=== PATIENT | male | born 1965 | race African-American/Black ===

== ENCOUNTER 2020-04-08 13:20 | Outpatient (REF) | payer MEDICARE, MEDICAID, SELFPAY | END 2020-04-08 13:21 | disposition home or self-care (01) | LOC: HO.HAP 13:20 | PROVIDERS: PCP Internal Medicine; Referring Provider Internal Medicine; Visit Provider Internal Medicine | DX: Z46.1 Encounter for fitting and adjustment of hearing aid (principal) | CPT/HCPCS: V5266 ==

== ENCOUNTER 2020-10-17 08:44 | Outpatient (REF) | payer MEDICARE, MEDICAID, SELFPAY ==
[2020-10-17 10:02] LABS: MANUAL DIFF FLAG NO
[2020-10-17 10:18] LABS: Basophils Percent Auto 0.1 % (0-2); Eosinophils Percent Auto 0.2 % (0-4); Hematocrit 44.1 % (42-52); Hemoglobin 14.8 g/dl (14.0-18.0); Imm Gran Abs Auto 0.03 X10*3/uL (0.00-0.03); Imm Gran Pct Auto 0.3 % (0.0-0.4); Lymphocytes Absolute Auto 1.5 X10*3/uL (1.2-4.9); Lymphocytes Percent Auto 17.7 % (20-40); Mean Corpuscular HGB Conc 33.6 g/dl (31.0-36.0); Mean Corpuscular Volume 86.5 fL (80-98); Mean Platelet Volume 11.6 fL (9.4-12.4); Monocytes Absolute Auto 0.5 X10*3/uL (0.1-1.2); Monocytes Percent Auto 5.4 % (2-11); Neutrophils Absolute Auto 6.6 X10*3/uL (2.0-8.3); Neutrophils Percent Auto 76.3 % (45-73); Platelet Count 243 X10*3/uL (160-400); Red Cell Distribution Width 12.4 % (11.0-16.0); White Blood Count 8.6 X10*3/uL (4.8-10.8)
[2020-10-17 10:31] LABS: Alanine Aminotransferase 22 U/L (0-40); Albumin Level 4.3 g/dL (3.5-5.0); Alkaline Phosphatase 93 U/L (39-117); Anion Gap 14 (12-20); Aspartate Amino Transferase 18 U/L (5-37); Bilirubin Total 0.6 mg/dL (0.0-1.0); Blood Urea Nitrogen 14 mg/dL (9-16); Calcium 9.4 mg/dL (8.4-10.2); Carbon Dioxide 26 mmol/L (22-29); Chloride 107 mmol/L (96-108); Cholesterol 134 mg/dL; Estimated Glomerular Filt Rate > 60; Glucose Random 101 mg/dL (60-115); HDL Cholesterol 31 mg/dL; LDL Cholesterol Calculated 89 mg/dl; Potassium 4.3 mmol/L (3.3-5.1); Sodium 143 mmol/L (135-145); Total Protein 7.9 g/dL (6.5-8.0); Triglycerides 74 mg/dL
[2020-10-17 10:58] LABS: Free T4 (Free Thyroxine) 0.91 ng/dL (0.71-1.85); Thyroid Stimulating Hormone 0.74 uIU/mL (0.32-4.0)
[2020-10-17 11:15] LABS: Folate 14.6 ng/mL (> or = 4.0); Vitamin B12 463 pg/mL (200-900)
== END 2020-10-17 08:45 | disposition home or self-care (01) ==
LOC: HO.LAB 08:44
PROVIDERS: PCP Internal Medicine; Visit Provider Internal Medicine
DX: I10 Essential (primary) hypertension (principal); E78.00 Pure hypercholesterolemia, unspecified
CPT/HCPCS: 36415; 80053; 80061; 82607; 82746; 84439; 84443; 85025

== ENCOUNTER 2020-11-13 11:36 | Outpatient (REF) | payer MEDICARE, MEDICAID, SELFPAY | END 2020-11-13 11:37 | disposition home or self-care (01) | LOC: HO.HAP 11:36 | PROVIDERS: Visit Provider Internal Medicine | DX: H90.3 Sensorineural hearing loss, bilateral (principal); Z46.1 Encounter for fitting and adjustment of hearing aid | CPT/HCPCS: 92592; V5266 ==

== ENCOUNTER 2021-02-06 10:57 | Outpatient (REF) | payer MEDICARE, MEDICAID, SELFPAY | END 2021-02-06 10:58 | disposition home or self-care (01) | LOC: HO.HAP 10:57 | PROVIDERS: Visit Provider Internal Medicine | DX: Z46.1 Encounter for fitting and adjustment of hearing aid (principal); H90.3 Sensorineural hearing loss, bilateral | CPT/HCPCS: 92592 ==

== ENCOUNTER 2021-02-18 13:46 | Outpatient (REF) | payer MEDICARE, MEDICAID, SELFPAY | END 2021-02-18 13:47 | disposition home or self-care (01) | LOC: HO.HAP 13:46 | PROVIDERS: Visit Provider Internal Medicine | DX: Z13.89 Encounter for screening for other disorder (principal) ==

== ENCOUNTER 2021-06-10 10:45 | Outpatient (REF) | payer MEDICARE, MEDICAID, SELFPAY ==
[2021-06-10 11:16] LABS: MANUAL DIFF FLAG NO
[2021-06-10 11:36] LABS: Basophils Percent Auto 0.2 % (0-2); Eosinophils Percent Auto 0.5 % (0-4); Hematocrit 45.8 % (42.0-52.0); Imm Gran Abs Auto 0.01 X10*3/uL (0.00-0.03); Imm Gran Pct Auto 0.1 % (0.0-0.4); Lymphocytes Absolute Auto 1.8 X10*3/uL (1.2-4.9); Lymphocytes Percent Auto 20.7 % (20-40); Mean Corpuscular HGB Conc 32.8 g/dl (31.0-36.0); Mean Corpuscular Hemoglobin 28.6 pg (27.0-33.0); Mean Corpuscular Volume 87.4 fL (80.0-98.0); Mean Platelet Volume 10.9 fL (9.4-12.4); Monocytes Absolute Auto 0.5 X10*3/uL (0.1-1.2); Monocytes Percent Auto 5.9 % (2-11); Neutrophils Absolute Auto 6.2 x10*3/uL (2.0-8.3); Neutrophils Percent Auto 72.6 % (45-73); Platelet Count 289 X10*3/uL (160-400); Red Blood Count 5.24 X10*6/uL (4.60-5.80); White Blood Count 8.6 X10*3/uL (4.8-10.8)
[2021-06-10 11:59] LABS: Alanine Aminotransferase 27 U/L (0-40); Albumin Level 4.2 g/dL (3.5-5.0); Alkaline Phosphatase 103 U/L (39-117); Anion Gap 11 (12-20); Aspartate Amino Transferase 19 U/L (5-37); Bilirubin Total 0.6 mg/dL (0.0-1.0); Blood Urea Nitrogen 12 mg/dL (9-16); Calcium 9.7 mg/dL (8.4-10.2); Carbon Dioxide 28 mmol/L (22-29); Chloride 107 mmol/L (96-108); Cholesterol 134 mg/dL; Estimated Glomerular Filt Rate > 60; Glucose Random 92 mg/dL (60-115); HDL Cholesterol 29 mg/dL; LDL Cholesterol Calculated 87 mg/dl; Potassium 4.4 mmol/L (3.3-5.1); Sodium 142 mmol/L (135-145); Total Protein 8.1 g/dL (6.5-8.0); Triglycerides 92 mg/dL
[2021-06-10 12:00] LABS: Estimated Average Glucose 120 mg/dL; Hemoglobin A1c % 5.8 %
[2021-06-10 12:22] LABS: Free T4 (Free Thyroxine) 0.87 ng/dL (0.71-1.85); Prostate Specific Antigen Scr 2.02 ng/mL (<0.05-4.0); Thyroid Stimulating Hormone 0.68 uIU/mL (0.32-4.0)
[2021-06-10 12:32] LABS: Folate 14.8 ng/mL (> or = 4.0); Vitamin B12 537 pg/mL (200-900)
== END 2021-06-10 10:46 | disposition home or self-care (01) ==
LOC: HO.LAB 10:45
PROVIDERS: PCP Internal Medicine; Visit Provider Internal Medicine
DX: I10 Essential (primary) hypertension (principal); E78.00 Pure hypercholesterolemia, unspecified; R73.02 Impaired glucose tolerance (oral); Z12.5 Encounter for screening for malignant neoplasm of prostate
CPT/HCPCS: 36415; 80053; 80061; 82607; 82746; 83036; 84153; 84439; 84443; 85025

== ENCOUNTER 2021-07-22 12:49 | Outpatient (REF) | payer MEDICARE, MEDICAID, SELFPAY | END 2021-07-22 12:50 | disposition home or self-care (01) | LOC: HO.HAP 12:49 | PROVIDERS: Visit Provider Internal Medicine | DX: Z46.1 Encounter for fitting and adjustment of hearing aid (principal); H90.3 Sensorineural hearing loss, bilateral | CPT/HCPCS: 92592 ==

== ENCOUNTER 2021-07-29 14:41 | Outpatient (REF) | payer MEDICARE, MEDICAID, SELFPAY | END 2021-07-29 14:42 | disposition home or self-care (01) | LOC: HO.HAP 14:41 | PROVIDERS: Visit Provider Internal Medicine | DX: Z13.89 Encounter for screening for other disorder (principal) ==

== ENCOUNTER 2022-04-20 13:43 | Outpatient (REF) | payer MEDICARE, MEDICAID, SELFPAY | END 2022-04-20 13:44 | disposition home or self-care (01) | LOC: HO.HAP 13:43 | PROVIDERS: Visit Provider Internal Medicine | DX: Z13.89 Encounter for screening for other disorder (principal) ==

== ENCOUNTER 2022-04-22 13:44 | Outpatient (REF) | payer MEDICARE, MEDICAID, SELFPAY | END 2022-04-22 13:45 | disposition home or self-care (01) | LOC: HO.HAP 13:44 | PROVIDERS: Visit Provider Internal Medicine | DX: Z46.1 Encounter for fitting and adjustment of hearing aid (principal); H90.3 Sensorineural hearing loss, bilateral | CPT/HCPCS: 92593 ==

== ENCOUNTER 2022-05-18 14:13 | Outpatient (REF) | payer MEDICARE, MEDICAID, SELFPAY | END 2022-05-18 14:14 | disposition home or self-care (01) | LOC: HO.HAP 14:13 | PROVIDERS: Visit Provider Internal Medicine | DX: Z13.89 Encounter for screening for other disorder (principal) ==

== ENCOUNTER 2022-05-28 11:47 | Outpatient (REF) | payer MEDICARE, MEDICAID, SELFPAY | END 2022-05-28 11:48 | disposition home or self-care (01) | LOC: HO.HAP 11:47 | PROVIDERS: Visit Provider Internal Medicine | DX: Z13.89 Encounter for screening for other disorder (principal) ==

== ENCOUNTER 2022-07-06 13:42 | Outpatient (REF) | payer MEDICARE, MEDICAID, SELFPAY | END 2022-07-06 13:43 | disposition home or self-care (01) | LOC: HO.HAP 13:42 | PROVIDERS: Visit Provider Internal Medicine | DX: Z13.89 Encounter for screening for other disorder (principal) ==

== ENCOUNTER 2022-07-15 13:29 | Outpatient (REF) | payer MEDICARE, MEDICAID, SELFPAY | END 2022-07-15 13:30 | disposition home or self-care (01) | LOC: HO.HAP 13:29 | PROVIDERS: Visit Provider Internal Medicine | DX: Z13.89 Encounter for screening for other disorder (principal) ==

== ENCOUNTER 2022-11-07 22:31 | Emergency (ER) | payer MEDICARE, MEDICAID, SELFPAY ==
--- NOTE | ~2022-11-07 | XR_ITS ---
EXAMINATION: XR CHEST CLINICAL INFORMATION: Chest pain. COMPARISON: None available. TECHNIQUE: Frontal view of the chest was obtained. FINDINGS: Low lung volumes with bibasilar platelike opacities. No pleural effusion or pneumothorax. Cardiomediastinal silhouette is prominent, likely accentuated by technique and poor inspiratory effort. No acute osseous abnormalities. The visualized upper abdomen is within normal limits. XR/XR chest 1V IMPRESSION: Low lung volumes with bibasilar platelike opacities favoring to represent subsegmental atelectasis. However, although less favored, aspiration and developing infiltrates cannot be entirely excluded.
--- NOTE | 2022-11-07 22:32 | ECG_ITS ---
Test Reason : CHEST PAIN Blood Pressure : / mmHG Vent. Rate : 095 BPM Atrial Rate : 095 BPM P-R Int : 136 ms QRS Dur : 096 ms QT Int : 356 ms P-R-T Axes : 025 -47 059 degrees QTc Int : 447 ms Normal sinus rhythm Left anterior fascicular block Left ventricular hypertrophy ( R in aVL , Ki product , Romhilt-Cohen ) Abnormal ECG No previous ECGs available Referred By: Generic ED Physician Electronically Signed By:NIGEL LAM
[2022-11-07 22:38] VITALS: BP 167/104; PULSE 94; RESP 16; TEMP 36.7; O2SAT 95; BMI 30.2
[2022-11-07 23:02] LABS: Hematocrit 41.9 % (42.0-52.0); Hemoglobin 13.9 g/dl (14.0-18.0); Mean Corpuscular HGB Conc 33.2 g/dl (31.0-36.0); Mean Corpuscular Hemoglobin 28.4 pg (27.0-33.0); Mean Corpuscular Volume 85.5 fL (80.0-98.0); Mean Platelet Volume 11.2 fL (9.4-12.4); Platelet Count 252 X10*3/uL (160-400); Red Cell Distribution Width 12.5 % (11.0-16.0); White Blood Count 14.8 X10*3/uL (4.8-10.8)
[2022-11-07 23:17] LABS: Alanine Aminotransferase 18 U/L (0-40); Albumin Level 3.7 g/dL (3.5-5.0); Alkaline Phosphatase 105 U/L (39-117); Anion Gap 12 (12-20); Aspartate Amino Transferase 14 U/L (5-37); Bilirubin Total 0.9 mg/dL (0.0-1.0); Blood Urea Nitrogen 11 mg/dL (9-16); Calcium 9.4 mg/dL (8.4-10.2); Carbon Dioxide 25 mmol/L (22-29); Chloride 105 mmol/L (96-108); Creatinine Clr Calc Pharmacy 64.3; Estimated Glomerular Filt Rate 56; Glucose Random 195 mg/dL (60-115); Potassium 3.8 mmol/L (3.3-5.1); Sodium 138 mmol/L (135-145); Total Protein 7.6 g/dL (6.5-8.0)
--- NOTE | 2022-11-08 00:20 | ED_ITS ---
HPI - Chest Pain General Chief Complaint: Chest Pain Stated Complaint: chest pain Time Seen by Provider: 11/08/22 00:20 Source: patient and other (Friend, Herber) Mode of arrival: ambulatory Limitations: no limitations History of Present Illness HPI narrative: 57-year-old male who presents emergency department for evaluation of chest pain. He states that shortly after eating dinner, at 20:00 hours he developed pain in his chest . He states the pain is been constant since onset, he describes the pain is a ?mild pain ?the pain radiate to his neck, jaw or back. He denied lightheadedness, dizziness, diaphoresis, nausea, vomiting associated with the pain. He states this is 1st episode of chest pain. He denied fever, chills, rhinorrhea, sore throat, cough. Related Data Previous Rx's Medication Instructions Recorded lisinopril 20 mg tablet 20 mg PO DAILY #90 tabs 02/17/22 metoprolol succinate 25 mg 25 mg PO DAILY 90 days #90 tabs 11/02/22 tablet,extended release 24 hr Allergies Allergy/AdvReac Type Severity Reaction Status Date / Time amlodipine Allergy Unknown Unknown Verified 11/07/22 22:38 Review of Systems Review of Systems: Yes all other systems are reviewed and are negative [facility] Past Medical History [facility] Narrative: Social history: He lives by himself. He denies tobacco, alcohol and drug use. Medical History Bilateral hearing loss Cyst of left kidney Hypertension Obesity Vitamin D deficiency Surgical History No pertinent past surgical history Family History Family History Father Medical history unknown Mother Medical history unknown Social History Social History Housing: Apartment Alcohol intake: never Patient Tobacco Use Status: Never used Tobacco Tobacco use type: Cigarette e-Cigarette/Vaping Use: Never Used Second Hand Smoke Exposure: No Advance Directives: No Advance Directives Information Provided: No service: No Current occupational status: unemployed Cognitive needs: No Hearing needs: Yes Vision needs: Yes Physical Exam Vital Signs: Vital Signs: Last Vital Signs Temp 98.7 F 11/08/22 01:57 Pulse 92 11/08/22 01:57 Resp 22 H 11/08/22 01:57 BP 124/86 11/08/22 01:57 Pulse Ox 95 11/08/22 01:57 O2 Del Method Room Air 11/08/22 01:57 BMI result Body Mass Index 30.2 Const: General: cooperative and no acute distress Orientation/consciousness: oriented to person and oriented to place Limitations: no limitations HEENT: Head: Yes normal to inspection, Yes normocephalic and Yes atraumatic Ears: external ears normal General nose exam: Normal external nose present Face and sinus: Yes normal facial exam Mouth: Normal oral and palatal mucosa present Throat: Yes posterior oropharynx normal Eyes: General: appearance normal, both eyes and all related structures Pupils: Equal, round and reactive pupils present Neck: Neck: Yes normal visual inspection, Yes no lymphadenopathy, Yes trachea midline and Yes supple Chest: Chest palpation & inspection: normal inspection of the chest and normal palpation of entire chest wall Resp: Effort & Inspection: normal respiratory effort and able to speak in comp lete sentences Auscultation: clear to auscultation bilaterally Cardio: Rate: regular rate Rhythm: regular rhythm Heart sounds: S1 normal heart sound present, S2 normal heart sound present and no murmurs GI: Inspection: Yes normal to inspection Palpation (GI): Soft to palpation, nontender and no guarding Auscultation: normal bowel sounds : General: Yes no CVA tenderness Back/Spine/Pelvis: Back: no CVA tenderness Skin: General skin exam: no rashes or lesions noted Neuro: General: oriented to person and oriented to place Cranial nerves: Yes CN's II-XII intact bilaterally and Yes Equal, round and reactive pupils present Cognition (Neuro): normal cognition Motor exam (neuro): 5/5 motor strength present throughout Extrem: General: Yes normal to inspection Psych: Appearance: grossly normal Speech and movement: Normal speech and movement present Affect: normal affect Attitude: cooperative Medications Administered Discontinued Medications Generic Name Dose Route Start Last Admin Trade Name Freq PRN Reason Stop Dose Admin Ketorolac Tromethamine 15 mg 11/08/22 00:34 11/08/22 00:55 Ketorolac Tromethamine 15 Mg/Ml Vial IVPUSH 11/08/22 00:35 15 mg ONCE STA Administration Medical Decision Making Medical Decision Making [facility] Narrative: 57-year-old male with a history of hypertension, obesity, BPH who presents emergency department for evaluation of chest pain that began around 20:00 hours after eating dinner. He had no concerning associated symptoms such as neck, jaw, arm pain, diaphoresis, lightheadedness, dizziness, nausea or vomiting. The pain is been constant since onset and is mild in intensity. The patient's vital signs revealed an elevated blood pressure of 167/104 otherwise unremarkable pain. Patient's physical examination was normal. I ordered the following tests: CBC, CMP, troponin, chest x-ray, EKG. 0041: Twelve EKG was unremarkable pain Chest x-ray revealed no acute disease My interpretation of the patient's laboratory data is as follows: elevated WBC 78387, elevated glucose 195, and high sensitive troponin I which was detectable of 4.0 but not elevated. Repeat troponin ordered for 02:00 hours. Patient's pain will be treated with Toradol 15 mg IV 0242: Patient is feeling better after receiving IV Toradol . Repeat troponin was 3.7 which is reassuring Patient's pain is most likely musculoskeletal pain Patient was advised to take ibuprofen 400 mg every 6 hours as needed for pain. He was given printed and verbal instructions and discharged home. Differential Diagnosis Differential Diagnoses: The differential diagnosis associated with the presentation includes Differential diagnosis includes was not limited to myocardial infarction, myocardial ischemia, GI pain, musculoskeletal pain, costochondritis Admission/Observation Consideration of admission/observation: Escalation of care including admission/observation considered Lab Data MDM Lab Attestation statement: I reviewed the patient's lab results. 11/07/22 22:57 11/07/22 22:57 Labs: Lab Results 11/07/22 11/07/22 11/07/22 Range/Units 22:57 22:57 22:57 WBC 14.8 H (4.8-10.8) X10*3/uL RBC 4.90 (4.60-5.80) X10*6/uL Hgb 13.9 L (14.0-18.0) g/dl Hct 41.9 L (42.0-52.0) % MCV 85.5 (80.0-98.0) fL MCH 28.4 (27.0-33.0) pg MCHC 33.2 (31.0-36.0) g/dl RDW 12.5 (11.0-16.0) % Plt Count 252 (160-400) X10*3/uL MPV 11.2 (9.4-12.4) fL Absolute Nucleated RBC 0.000 (0.0-0.012) X10*3/uL Nucleated RBC % (auto) 0.0 (0.0-0.2) /100WBC Sodium 138 (135-145) mmol/L Potassium 3.8 (3.3-5.1) mmol/L Chloride 105 (96-108) mmol/L Carbon Dioxide 25 (22-29) mmol/L Anion Gap 12 (12-20) BUN 11 (9-16) mg/dL Creatinine 1.32 (0.5-1.4) mg/dL Estim Creat Clear Calc 64.3 Estimated GFR 56 Random Glucose 195 H (60-115) mg/dL Calcium 9.4 (8.4-10.2) mg/dL Total Bilirubin 0.9 (0.0-1.0) mg/dL AST 14 (5-37) U/L ALT 18 (0-40) U/L Alkaline Phosphatase 105 (39-117) U/L Troponin I High Sens 4.0 (<3.5-35.0) ng/L Total Protein 7.6 (6.5-8.0) g/dL Albumin 3.7 (3.5-5.0) g/dL 11/08/22 Range/Units 02:01 WBC (4.8-10.8) X10*3/uL RBC (4.60-5.80) X10*6/uL Hgb (14.0-18.0) g/dl Hct (42.0-52.0) % MCV (80.0-98.0) fL MCH (27.0-33.0) pg MCHC (31.0-36.0) g/dl RDW (11.0-16.0) % Plt Count (160-400) X10*3/uL MPV (9.4-12.4) fL Absolute Nucleated RBC (0.0-0.012) X10*3/uL Nucleated RBC % (auto) (0.0-0.2) /100WBC Sodium (135-145) mmol/L Potassium (3.3-5.1) mmol/L Chloride (96-108) mmol/L Carbon Dioxide (22-29) mmol/L Anion Gap (12-20) BUN (9-16) mg/dL Creatinine (0.5-1.4) mg/dL Estim Creat Clear Calc Estimated GFR Random Glucose (60-115) mg/dL Calcium (8.4-10.2) mg/dL Total Bilirubin (0.0-1.0) mg/dL AST (5-37) U/L ALT (0-40) U/L Alkaline Phosphatase (39-117) U/L Troponin I High Sens 3.7 (<3.5-35.0) ng/L Total Protein (6.5-8.0) g/dL Albumin (3.5-5.0) g/dL Independent Interpretation I performed an independent interpretation of an: EKG Interpretation: My independent interpretation the patient's 12 EKG done at 07/12/2031 is as follows: Normal sinus rhythm rate of 95, normal AR interval, QRS duration QTC interval, no ST segment elevation, no ST segment depression, no T-wave abnormalities, no PACs, no PVCs, elevated QRS voltages consistent with LVH. No previous EKG comparison My independent interpretation of the patient's 1 view chest x-ray is as follows: no acute disease Radiology Impression Discussion of test interpretation with radiology: I have reviewed the radiologist's reading. Radiologist Impression: XR chest 1V IMPRESSION: Low lung volumes with bibasilar platelike opacities favoring to represent subsegmental atelectasis. However, although less favored, aspiration and developing infiltrates cannot be entirely excluded. Dictated By:Nelda Wallace Independent Historian Clinical information obtained from an independent historian. History obtained from or confirmed by: Friend Discharge Plan Discharge Clinical Impression: Chest pain Qualifiers: Chest pain type: unspecified Qualified Code(s): R07.9 - Chest pain, unspecified Patient Disposition: Home, Self-Care Instructions: Costochondritis (ED) Additional Instructions: Your EKG was unremarkable. Your blood work did reveal a low troponin in your blood however the repeat 3 hour troponin was unchanged not above 30. This suggests that she has not had a heart attack or heart injury is the cause of your pain Your pain is most likely caused by inflammation of the muscles or joints of your chest Take ibuprofen 200 mg pills, 2 pills every 6 hours as needed for pain. Follow-up with your doctor in 2 days. Please return to the emergency department if your symptoms get worse or if you develop any symptoms that are concerning to you. Prescriptions: No Action lisinopril 20 mg tablet 20 mg PO DAILY Qty: 90 2RF metoprolol succinate 25 mg tablet extended release 24 hr 25 mg PO DAILY 90 Days Qty: 90 3RF
[2022-11-08] MEDS: Ketorolac Tromethamine 15 MG/ML VIAL IVPUSH (00:55)
--- NOTE | 2022-11-08 00:57 | PC.NURSE ---
administered 15 mg ketorolac IV push per mAR
[2022-11-08 01:57] VITALS: BP 124/86; PULSE 92; RESP 22; TEMP 37.1; O2SAT 95
[2022-11-08 02:25] LABS: Troponin-I High Sensitivity 3.7 ng/L (<3.5-35.0)
--- NOTE | 2022-11-08 03:16 | PC.NURSE ---
Discharge instructions given and explained to pt No apparent distress Ambulates safely/independently IV cath tip intact upon removal aox4
== END 2022-11-08 03:16 | disposition home or self-care (01) ==
PROVIDERS: Emergency Provider Emergency Medicine Emergency Medical Services; PCP Internal Medicine
DX: R07.9 Chest pain, unspecified (principal); I10 Essential (primary) hypertension
CPT/HCPCS: 36415; 71045; 80053; 84484; 85027; 93005; 96374; 99284; 99285; J1885

== ENCOUNTER 2023-01-17 09:23 | Outpatient (AMB) | payer MEDICARE, MEDICAID, SELFPAY ==
[2023-01-17 09:27] VITALS: BP 158/78; PULSE 79; O2SAT 98; BMI 30.7
--- NOTE | 2023-01-17 09:27 | MHC.PC.OV ---
Vital Signs 01/17/23 09:27 Height 5 ft 6 in Weight 190 lb BMI 30.7 BP 158/78 H Blood Pressure Location Lt brachial Position Sitting Pulse 79 Pulse Source Pulse Oximeter Pulse Oximetry (%) 98 Oxygen Delivery Method Room Air Intake Visit Reasons: 6m F/U HTN Allergies amlodipine Allergy (Unknown, Verified 01/17/23 09:27) Unknown Tobacco use date assessed: 07/15/22 Dental Screening Dental Screen Date: 01/17/23 Did you have a dental visit in the last 12 months?: Yes Did you have a dental problem in the last 6 months where you did not have access to dental care?: No Was dental information given to patient?: Patient has dentist HPI 6m F/U HTN HPI Details 57-year-old obese male with impaired glucose tolerance hypertension BPH coming in for follow-up. Last seen in June 2022 had wrist pain and x-ray was requested blood work requested also. October ER visit for chest pain diagnosis costochondritis. BP high today states teeth aching , chest pain is better. blood work not done as for the chest pain has not occurred again but states after eating did have that pain on the chest and some vague 1. Question of GERD versus costochondritis but it is better. Discussed about eating better also. Patient had a referral for speech and hearing for the hearing deficit but was given a letter and advised to get it in [facility]. COUNTS INCLUDE 234 BEDS AT THE [facility] Medical History Bilateral hearing loss Cyst of left kidney Hypertension Obesity Vitamin D deficiency Surgical History No pertinent past surgical history Family History (Updated 01/17/23 @ 09:28 by Anisha Radford CMA) Father Medical history unknown Mother Medical history unknown Social History Housing: Apartment Alcohol intake: unknown Patient Tobacco Use Status: Never used Tobacco Tobacco use type: Cigarette e-Cigarette/Vaping Use: Never Used Second Hand Smoke Exposure: No service: No Current occupational status: unemployed Cognitive needs: No Hearing needs: Yes Vision needs: Yes Questionnaire PHQ-9 Over the last 2 weeks, how often have you been bothered by any of the following problems? 1. Little interest or pleasure in doing things: not at all 2. Feeling down, depressed, or hopeless: not at all 3. Trouble falling or staying asleep, or sleeping too much: not at all 4. Feeling tired or having little energy: not at all 5. Poor appetite or overeating: not at all 6. Feeling bad about yourself - or that you are a failure or have let yourself or your family down: not at all 7. Trouble concentrating on things, such as reading the newspaper or watching television: not at all 8. Moving or speaking so slowly that other people could have noticed. Or the opposite - being so fidgety or restless that you have been moving around a lot more than usual: not at all 9. Thoughts that you would be better off or of hurting yourself in some way: not at all Total score: 0 Depression Screening Interpretation: Negative Source: Developed by Drs. Larry Coon, Melissa Andujar, Prabhu Gramajo and colleagues, with an educational kathy from [employer]. Thrive Questionnaire Date Thrive assessed: 07/15/22 AUDIT C Alcohol Use Questionnaire (AUDIT-C) 1. How often do you have a drink containing alcohol?: Never 3. How often do you have six or more drinks on one occasion?: Never Total Score: 0 MICHAEL-7 AMB Questionnaire MICHAEL-7 Date MICHAEL - 7 assessed: 07/15/22 Source: Developed by Drs. Larry Coon, Melissa Andujar, Prabhu Gramajo and colleagues, with an educational kathy from [employer]. Physical exam (Primary Care) Vital Signs: Last Vital Signs Pulse 79 01/17/23 09:27 BP 158/78 H 01/17/23 09:27 Pulse Ox 98 01/17/23 09:27 Oxygen Delivery Method Room Air 01/17/23 09:27 BMI result Body Mass Index 30.7 Tobacco/Smoking Status: Tobacco use Status Tobacco use date assessed 07/15/22 01/17/23 09:31 Patient Tobacco Use Status Never used Tobacco 01/17/23 09:31 Tobacco use type Cigarette 01/17/23 09:31 e-Cigarette/Vaping Use Never Used 01/17/23 09:31 PHQ-9: PHQ-9 Score PHQ-9: Total score 0 01/17/23 09:31 Depression Screening Interpretation: Negative Thrive Assessment: Date of Thrive Assessment Date Thrive assessed 07/15/22 01/17/23 09:31 Const General: alert; No acute distress Eyes Conjunctivae: conjunctivae normal Resp Auscultation: clear to auscultation bilaterally Cardio Rate: regular rate Rhythm: regular rhythm GI Inspection: Yes normal to inspection Extrem General: Yes normal to inspection and No edema Assessment and Plan Assessment & Plan (1) Impaired glucose tolerance: Code(s): R73.02 - Impaired glucose tolerance (oral) Plan: Decrease the amount of carbohydrate intake, pasta, bread, rice and potatoes are all sugar and that is aside from all the sweet stuff, remember that fruits are good but they are Sweet also. (2) Obesity: Code(s): E66.9 - Obesity, unspecified Qualifiers: Obesity type: due to excess calories Obesity classification: adult class 1 (BMI 30 - 34.9) Serious obesity comorbidity presence: without serious comorbidity Body mass index: BMI 32.0-32.9 Qualified Code(s): E66.09 - Other obesity due to excess calories; Z68.32 - Body mass index [BMI] 32.0-32.9, adult Plan: Diet and exercise (3) Hypertension: Code(s): I10 - Essential (primary) hypertension Qualifiers: Hypertension type: essential hypertension Qualified Code(s): I10 - Essential (primary) hypertension Plan: Continue with blood pressure medication. Decrease salt intake and exercise patient is on lisinopril 20 mg once a day and metoprolol 25 mg once a day. Presently blood pressure is high states teeth has a problem and advised to get the dentist to see this. As for the blood pressure will continue to monitor. And continue with blood pressure medication (4) Costochondritis: Code(s): M94.0 - Chondrocostal junction syndrome [Tietze] Plan: Reassurance, resolved (5) Bilateral hearing loss: Code(s): H91.93 - Unspecified hearing loss, bilateral Plan: Referral to [facility] Orders: Referrals Speech and Hearing Referral H91.93 - Unspecified hearing loss, bilateral Coding Level of Care Code Est Pt Level 4 (46628) Diagnoses Impaired glucose tolerance R73.02 Obesity E66.09; Z68.32 Obesity type: due to excess calories Obesity classification: adult class 1 (BMI 30 - 34.9) Serious obesity comorbidity presence: without serious comorbidity Body mass index: BMI 32.0-32.9 Hypertension I10 Hypertension type: essential hypertension Costochondritis M94.0 Bilateral hearing loss H91.93
== END 2023-01-17 09:56 | disposition home or self-care (01) ==
PROVIDERS: Visit Provider Internal Medicine
DX: R73.02 Impaired glucose tolerance (oral) (principal); E66.09 Other obesity due to excess calories; Z68.32 Body mass index [BMI] 32.0-32.9, adult; I10 Essential (primary) hypertension; M94.0 Chondrocostal junction syndrome [Tietze]; H91.93 Unspecified hearing loss, bilateral
CPT/HCPCS: 99214

== ENCOUNTER 2023-01-19 08:50 | Outpatient (REF) | payer MEDICARE, MEDICAID, SELFPAY ==
[2023-01-19 09:06] LABS: MANUAL DIFF FLAG NO
[2023-01-19 09:11] LABS: Basophils Percent Auto 0.2 % (0-2); Eosinophils Percent Auto 0.4 % (0-4); Hematocrit 43.4 % (42.0-52.0); Hemoglobin 14.5 g/dl (14.0-18.0); Imm Gran Abs Auto 0.02 X10*3/uL (0.00-0.03); Imm Gran Pct Auto 0.2 % (0.0-0.4); Lymphocytes Percent Auto 24.2 % (20-40); Mean Corpuscular HGB Conc 33.4 g/dl (31.0-36.0); Mean Corpuscular Hemoglobin 28.8 pg (27.0-33.0); Mean Corpuscular Volume 86.3 fL (80.0-98.0); Mean Platelet Volume 11.5 fL (9.4-12.4); Monocytes Absolute Auto 0.5 X10*3/uL (0.1-1.2); Monocytes Percent Auto 5.9 % (2-11); Neutrophils Absolute Auto 5.7 x10*3/uL (2.0-8.3); Neutrophils Percent Auto 69.1 % (45-73); Platelet Count 247 X10*3/uL (160-400); Red Blood Count 5.03 X10*6/uL (4.60-5.80); Red Cell Distribution Width 12.7 % (11.0-16.0); White Blood Count 8.3 X10*3/uL (4.8-10.8)
[2023-01-19 09:49] LABS: Alanine Aminotransferase 19 U/L (0-40); Alkaline Phosphatase 96 U/L (39-117); Anion Gap 10 (12-20); Aspartate Amino Transferase 17 U/L (5-37); Bilirubin Total 0.7 mg/dL (0.0-1.0); Blood Urea Nitrogen 13 mg/dL (9-16); Calcium 8.9 mg/dL (8.4-10.2); Carbon Dioxide 28 mmol/L (22-29); Chloride 109 mmol/L (96-108); Cholesterol 140 mg/dL (<200); Estimated Glomerular Filt Rate > 60; Glucose Random 103 mg/dL (60-115); HDL Cholesterol 31 mg/dL (>40); LDL Cholesterol Calculated 93 mg/dL (<100); Potassium 3.8 mmol/L (3.3-5.1); Sodium 143 mmol/L (135-145); Total Protein 7.8 g/dL (6.5-8.0); Triglycerides 81 mg/dL (<150)
[2023-01-19 10:04] LABS: Free T4 (Free Thyroxine) 0.86 ng/dL (0.71-1.85); Thyroid Stimulating Hormone 0.83 uIU/mL (0.32-4.0)
[2023-01-19 10:18] LABS: Folate 12.1 ng/mL (> or = 4.0); Prostate Specific Antigen Scr 1.52 ng/mL (<0.05-4.0); Vitamin B12 750 pg/mL (200-900)
== END 2023-01-19 08:51 | disposition home or self-care (01) ==
LOC: HO.LAB 08:50
PROVIDERS: PCP Internal Medicine; Visit Provider Internal Medicine
DX: E78.00 Pure hypercholesterolemia, unspecified (principal); I10 Essential (primary) hypertension; Z12.5 Encounter for screening for malignant neoplasm of prostate
CPT/HCPCS: 36415; 80053; 80061; 82607; 82746; 84153; 84439; 84443; 85025

== ENCOUNTER 2023-03-14 15:46 | Outpatient (REF) | payer MEDICARE, MEDICAID, SELFPAY | END 2023-03-14 15:47 | disposition home or self-care (01) | LOC: HO.HAP 15:46 | PROVIDERS: Visit Provider Internal Medicine | DX: Z46.1 Encounter for fitting and adjustment of hearing aid (principal); H90.3 Sensorineural hearing loss, bilateral | CPT/HCPCS: V5266 ==

== ENCOUNTER 2023-03-30 12:20 | Outpatient (AMB) | payer MEDICARE, MEDICAID, SELFPAY ==
--- NOTE | 2023-03-30 12:35 | MHC.PC.OV ---
Vital Signs 03/30/23 12:36 Height 5 ft 6 in Weight 190 lb 6 oz BMI 30.7 BP 130/68 Blood Pressure Location Lt brachial Position Sitting Pulse 78 Pulse Source Pulse Oximeter Pulse Oximetry (%) 97 Oxygen Delivery Method Room Air Intake Visit Reasons: HTN, Intake Note: Patient is here to follow up on HTN. Interactive Developer Required: No Laboratory Apparatus Glass Blower: Not Required per policy Accompanied by: Self / Same As Patient Allergies amlodipine Allergy (Unknown, Verified 03/30/23 12:35) Unknown Medication List - Last Reconciled 03/30/23 by Gustavo Grace MD lisinopril 20 mg PO DAILY metoprolol succinate ER 25 mg PO DAILY 90 days Tobacco use date assessed: 03/30/23 Dental Screening Dental Screen Date: 03/30/23 Did you have a dental visit in the last 12 months?: Yes Did you have a dental problem in the last 6 months where you did not have access to dental care?: No Was dental information given to patient?: Patient has dentist HPI HTN, HPI Details 57-year-old obese male with a history of bilateral hearing loss, impaired glucose tolerance hypertension coming in for follow-up. Last seen in January 09 a 2022 [facility] Medical History Bilateral hearing loss Cyst of left kidney Hypertension Obesity Vitamin D deficiency Surgical History No pertinent past surgical history Family History Father Medical history unknown Mother Medical history unknown Social History Housing: Apartment Alcohol intake: never Patient Tobacco Use Status: Never used Tobacco Tobacco use type: Cigarette e-Cigarette/Vaping Use: Never Used Second Hand Smoke Exposure: No service: No Current occupational status: unemployed Cognitive needs: No Hearing needs: Yes Vision needs: Yes Questionnaire Thrive Questionnaire Date Thrive assessed: 07/15/22 MICHAEL-7 AMB Questionnaire MICHAEL-7 Date MICHAEL - 7 assessed: 07/15/22 Source: Developed by Drs. Larry Coon, Melissa Andujar, Prabhu Gramajo and colleagues, with an educational kathy from [employer]. Physical exam (Primary Care) BMI result Body Mass Index 30.7 Tobacco/Smoking Status: Tobacco use Status Tobacco use date assessed 07/15/22 01/17/23 09:31 Patient Tobacco Use Status Never used Tobacco 01/17/23 09:31 Tobacco use type Cigarette 01/17/23 09:31 e-Cigarette/Vaping Use Never Used 01/17/23 09:31 Thrive Assessment: Date of Thrive Assessment Date Thrive assessed 07/15/22 01/17/23 09:31 Const General: alert; No acute distress Eyes Conjunctivae: conjunctivae normal Resp Auscultation: clear to auscultation bilaterally Cardio Rate: regular rate Rhythm: regular rhythm GI Inspection: Yes normal to inspection Extrem General: Yes normal to inspection and No edema Assessment and Plan Assessment & Plan (1) Hypertension: Code(s): I10 - Essential (primary) hypertension Qualifiers: Hypertension type: essential hypertension Qualified Code(s): I10 - Essential (primary) hypertension Plan: Continue with blood pressure medication. Decrease salt intake and exercise presently on lisinopril 20 mg once a day and metoprolol 25 mg once a day (2) Obesity: Code(s): E66.9 - Obesity, unspecified Qualifiers: Obesity type: due to excess calories Obesity classification: adult class 1 (BMI 30 - 34.9) Serious obesity comorbidity presence: without serious comorbidity Body mass index: BMI 32.0-32.9 Qualified Code(s): E66.09 - Other obesity due to excess calories; Z68.32 - Body mass index [BMI] 32.0-32.9, adult Plan: Diet and exercise (3) Impaired glucose tolerance: Code(s): R73.02 - Impaired glucose tolerance (oral) Plan: Decrease the amount of carbohydrate intake, pasta, bread, rice and potatoes are all sugar and that is aside from all the sweet stuff, remember that fruits are good but they are Sweet also. (4) Bilateral hearing loss: Code(s): H91.93 - Unspecified hearing loss, bilateral Orders: Referrals Ear/Nose/Throat Referral H91.93 - Unspecified hearing loss, bilateral Coding Level of Care Code Est Pt Level 4 (22712) Diagnoses Essential hypertension I10 Hypertension type: essential hypertension Class 1 obesity due to excess calories without serious comorbidity with body mass index (BMI) of 32.0 to 32.9 in adult E66.09; Z68.32 Obesity type: due to excess calories Obesity classification: adult class 1 (BMI 30 - 34.9) Serious obesity comorbidity presence: without serious comorbidity Body mass index: BMI 32.0-32.9 Impaired glucose tolerance R73.02 Bilateral hearing loss H91.93
[2023-03-30 12:36] VITALS: BP 130/68; PULSE 78; O2SAT 97; BMI 30.7
== END 2023-03-30 12:56 | disposition home or self-care (01) ==
PROVIDERS: PCP Internal Medicine; Visit Provider Internal Medicine
DX: I10 Essential (primary) hypertension (principal); E66.09 Other obesity due to excess calories; Z68.32 Body mass index [BMI] 32.0-32.9, adult; R73.02 Impaired glucose tolerance (oral); H91.93 Unspecified hearing loss, bilateral
CPT/HCPCS: 99214

== ENCOUNTER 2023-07-04 19:37 | Emergency (ER) | payer MEDICARE, MEDICAID, SELFPAY ==
--- NOTE | ~2023-07-04 | XR_ITS ---
Examination: XR ankle LT min 3V, XR foot LT min 3V Indication: pain, injury Comparison: No pertinent prior studies are currently available for comparison. Technique: 3 views of the left ankle and foot were obtained with a combined lateral left ankle and foot projection. Findings: There is significant soft tissue swelling about the medial ankle. I cannot exclude a very tiny avulsion injury along the inferior aspect of the medial malleolus on one projection. I do not appreciate any obvious widening to the ankle mortise. Calcaneal heel spurs at the attachment point of the Achilles tendon and plantar aponeurosis noted. There are subtle nondisplaced fractures through the proximal metaphysis of the second and third metatarsals. I do not appreciate any significant angulation to the subtle fractures. XR/XR ankle LT min 3V Impression: Significant soft tissue swelling about the medial ankle. I cannot exclude a tiny avulsion injury along the inferior aspect of the medial malleolus on one projection. There are subtle nondisplaced fractures through the proximal metaphysis of the second and third metatarsals.
--- NOTE | ~2023-07-04 | XR_ITS ---
Examination: XR ankle LT min 3V, XR foot LT min 3V Indication: pain, injury Comparison: No pertinent prior studies are currently available for comparison. Technique: 3 views of the left ankle and foot were obtained with a combined lateral left ankle and foot projection. Findings: There is significant soft tissue swelling about the medial ankle. I cannot exclude a very tiny avulsion injury along the inferior aspect of the medial malleolus on one projection. I do not appreciate any obvious widening to the ankle mortise. Calcaneal heel spurs at the attachment point of the Achilles tendon and plantar aponeurosis noted. There are subtle nondisplaced fractures through the proximal metaphysis of the second and third metatarsals. I do not appreciate any significant angulation to the subtle fractures. XR/XR foot LT min 3V Impression: Significant soft tissue swelling about the medial ankle. I cannot exclude a tiny avulsion injury along the inferior aspect of the medial malleolus on one projection. There are subtle nondisplaced fractures through the proximal metaphysis of the second and third metatarsals.
[2023-07-04 19:39] VITALS: BP 180/119; PULSE 99; RESP 18; TEMP 37.4; O2SAT 97; BMI 32.9
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
[2023-07-05 00:27] VITALS: BP 204/108; PULSE 96; RESP 17; TEMP 36.9; O2SAT 98
[2023-07-05 01:11] VITALS: BP 184/108; PULSE 94; O2SAT 99
[2023-07-05] MEDS: lisinopriL 20 MG TABLET PO (01:26)
--- NOTE | 2023-07-05 02:01 | PC.NURSE ---
splint applied to patient left leg by URI bolaños, patient tolerated procedure well. currently resting in bed, respirations equal and unlabored
[2023-07-05 02:11] VITALS: BP 173/103
[2023-07-05 02:20] VITALS: BP 182/94
== END 2023-07-05 02:41 | disposition home or self-care (01) ==
PROVIDERS: Emergency Provider Emergency Medicine; PCP Internal Medicine
DX: S92.325A Nondisplaced fracture of second metatarsal bone, left foot, initial encounter for closed fracture (principal); M79.672 Pain in left foot; I10 Essential (primary) hypertension; V03.90XA Pedestrian on foot injured in collision with car, pick-up truck or van, unspecified whether traffic or nontraffic accident, initial encounter; Y93.9 Activity, unspecified; Y92.410 Unspecified street and highway as the place of occurrence of the external cause; Y99.8 Other external cause status
CPT/HCPCS: 73610; 73630; 99283

== ENCOUNTER 2023-07-06 09:20 | Outpatient (AMB) | payer MEDICARE, MEDICAID, SELFPAY ==
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
[2023-07-06 09:29] VITALS: BMI 32.9
== END 2023-07-06 10:37 | disposition home or self-care (01) ==
PROVIDERS: PCP Internal Medicine; Visit Provider Physician Assistant
DX: S92.325A Nondisplaced fracture of second metatarsal bone, left foot, initial encounter for closed fracture (principal); S92.335A Nondisplaced fracture of third metatarsal bone, left foot, initial encounter for closed fracture; S97.82XA Crushing injury of left foot, initial encounter
CPT/HCPCS: 99203

== ENCOUNTER → 2023-07-06 09:20 | Outpatient (BNVA) | payer MEDICARE, MEDICAID, SELFPAY | PROVIDERS: PCP Internal Medicine; Visit Provider Physician Assistant | DX: S92.325A Nondisplaced fracture of second metatarsal bone, left foot, initial encounter for closed fracture (principal); S92.335A Nondisplaced fracture of third metatarsal bone, left foot, initial encounter for closed fracture; S97.82XA Crushing injury of left foot, initial encounter | CPT/HCPCS: 99202 ==

== ENCOUNTER 2023-07-21 08:37 | Outpatient (AMB) | payer MEDICARE, MEDICAID, SELFPAY ==
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
[2023-07-21 08:44] VITALS: BP 172/98; PULSE 93; O2SAT 98; BMI 30.9
== END 2023-07-21 09:50 | disposition home or self-care (01) ==
PROVIDERS: Visit Provider Internal Medicine
DX: Z00.00 Encounter for general adult medical examination without abnormal findings (principal); E66.09 Other obesity due to excess calories; Z68.32 Body mass index [BMI] 32.0-32.9, adult; I10 Essential (primary) hypertension; R73.02 Impaired glucose tolerance (oral); H91.93 Unspecified hearing loss, bilateral; N40.0 Benign prostatic hyperplasia without lower urinary tract symptoms; S92.335A Nondisplaced fracture of third metatarsal bone, left foot, initial encounter for closed fracture; S92.325A Nondisplaced fracture of second metatarsal bone, left foot, initial encounter for closed fracture; M25.531 Pain in right wrist
CPT/HCPCS: 99396

== ENCOUNTER 2023-08-11 09:30 | Outpatient (REF) | payer MEDICARE, MEDICAID, SELFPAY ==
--- NOTE | ~2023-08-11 | XR_ITS ---
EXAMINATION: XR FOOT, LEFT CLINICAL INFORMATION: Pain in left foot COMPARISON: July 04 or 2023 TECHNIQUE: AP, lateral, and oblique views of the left foot. FINDINGS: The bones and soft tissues are normal. No fracture. Alignment is anatomic. There is plantar and small posterior calcaneal spurring. There is soft tissue swelling dorsally Joint spaces are maintained. XR/XR foot LT min 3V IMPRESSION: No fracture seen. Calcaneal spurring.
== END 2023-08-11 09:31 | disposition home or self-care (01) ==
LOC: HO.HOSX 09:30
PROVIDERS: Visit Provider Physician Assistant
DX: S92.325D Nondisplaced fracture of second metatarsal bone, left foot, subsequent encounter for fracture with routine healing (principal); S92.335D Nondisplaced fracture of third metatarsal bone, left foot, subsequent encounter for fracture with routine healing; M79.672 Pain in left foot; S97.82XD Crushing injury of left foot, subsequent encounter; V09.20XD Pedestrian injured in traffic accident involving unspecified motor vehicles, subsequent encounter
CPT/HCPCS: 73630; 99212

== ENCOUNTER 2023-08-11 12:52 | Outpatient (AMB) | payer MEDICARE, MEDICAID, SELFPAY ==
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
== END 2023-08-11 14:57 | disposition home or self-care (01) ==
PROVIDERS: PCP Internal Medicine; Visit Provider Physician Assistant
DX: S92.325A Nondisplaced fracture of second metatarsal bone, left foot, initial encounter for closed fracture (principal); S92.335A Nondisplaced fracture of third metatarsal bone, left foot, initial encounter for closed fracture; S97.82XA Crushing injury of left foot, initial encounter
CPT/HCPCS: 99213

== ENCOUNTER 2023-09-08 10:38 | Outpatient (REF) | payer MEDICARE, MEDICAID, SELFPAY ==
--- NOTE | ~2023-09-08 | XR_ITS ---
EXAMINATION: XR FOOT, LEFT CLINICAL INFORMATION: Pain in unspecified foot. COMPARISON: 08/11/2023, 07/04/2023. TECHNIQUE: AP, lateral, and oblique views of the left foot. FINDINGS: Previously identified nondisplaced fractures through the proximal metaphysis of the second and third metatarsals identified on exam of 07/04/2023 are less conspicuous, with evidence of interval healing. Bones are diffusely demineralized. Mild degenerative changes first metatarsophalangeal joint. Plantar and posterior calcaneal spurs. XR/XR foot LT min 3V IMPRESSION: Previously identified nondisplaced fractures through the proximal metaphysis of the second and third metatarsals identified on exam of 07/04/2023 are less conspicuous, with evidence of interval healing..
== END 2023-09-08 10:39 | disposition home or self-care (01) ==
LOC: HO.HOSX 10:38
PROVIDERS: Visit Provider Physician Assistant
DX: S92.322D Displaced fracture of second metatarsal bone, left foot, subsequent encounter for fracture with routine healing (principal)
CPT/HCPCS: 73630; 99212

== ENCOUNTER 2023-09-08 12:42 | Outpatient (AMB) | payer MEDICARE, MEDICAID, SELFPAY ==
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
== END 2023-09-08 14:34 | disposition home or self-care (01) ==
PROVIDERS: PCP Internal Medicine; Visit Provider Physician Assistant
DX: S92.325A Nondisplaced fracture of second metatarsal bone, left foot, initial encounter for closed fracture (principal); S92.335A Nondisplaced fracture of third metatarsal bone, left foot, initial encounter for closed fracture; S97.82XA Crushing injury of left foot, initial encounter
CPT/HCPCS: 99213

== ENCOUNTER 2023-09-14 11:00 | Outpatient (RCR) | payer MEDICARE, MEDICAID, SELFPAY ==
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
== END 2023-09-14 14:58 | disposition home or self-care (01) ==
LOC: HO.PT 11:00
PROVIDERS: PCP Internal Medicine; Visit Provider Physician Assistant
DX: S97.82XD Crushing injury of left foot, subsequent encounter (principal)
CPT/HCPCS: 97140; 97161; 97530

== ENCOUNTER 2023-10-25 08:18 | Outpatient (REF) | payer MEDICARE, MEDICAID, SELFPAY ==
[2023-10-25 08:28] LABS: MANUAL DIFF FLAG NO
[2023-10-25 08:57] LABS: Basophils Percent Auto 0.1 % (0-2); Eosinophils Absolute Auto 0.1 X10*3/uL (0.0-0.4); Hematocrit 39.8 % (42.0-52.0); Hemoglobin 13.3 g/dl (14.0-18.0); Imm Gran Abs Auto 0.01 X10*3/uL (0.00-0.03); Imm Gran Pct Auto 0.1 % (0.0-0.4); Lymphocytes Absolute Auto 1.8 X10*3/uL (1.2-4.9); Lymphocytes Percent Auto 25.3 % (20-40); Mean Corpuscular HGB Conc 33.4 g/dl (31.0-36.0); Mean Corpuscular Hemoglobin 28.5 pg (27.0-33.0); Mean Corpuscular Volume 85.2 fL (80.0-98.0); Mean Platelet Volume 11.7 fL (9.4-12.4); Monocytes Absolute Auto 0.5 X10*3/uL (0.1-1.2); Monocytes Percent Auto 7.2 % (2-11); Neutrophils Absolute Auto 4.7 x10*3/uL (2.0-8.3); Neutrophils Percent Auto 66.3 % (45-73); Platelet Count 223 X10*3/uL (160-400); Red Blood Count 4.67 X10*6/uL (4.60-5.80); Red Cell Distribution Width 12.8 % (11.0-16.0)
[2023-10-25 09:41] LABS: Alanine Aminotransferase 16 U/L (0-40); Albumin Level 3.8 g/dL (3.5-5.0); Alkaline Phosphatase 94 U/L (39-117); Anion Gap 13 (12-20); Aspartate Amino Transferase 16 U/L (5-37); Bilirubin Total 0.4 mg/dL (0.0-1.0); Blood Urea Nitrogen 14 mg/dL (9-16); Carbon Dioxide 24 mmol/L (22-29); Chloride 110 mmol/L (96-108); Cholesterol 130 mg/dL (<200); Estimated Glomerular Filt Rate > 60; Glucose Random 106 mg/dL (60-115); HDL Cholesterol 35 mg/dL (>40); LDL Cholesterol Calculated 81 mg/dL (<100); Potassium 3.6 mmol/L (3.3-5.1); Sodium 143 mmol/L (135-145); Total Protein 7.3 g/dL (6.5-8.0); Triglycerides 74 mg/dL (<150)
[2023-10-25 10:00] LABS: Free T4 (Free Thyroxine) 0.89 ng/dL (0.71-1.85); Thyroid Stimulating Hormone 0.76 uIU/mL (0.32-4.0)
[2023-10-25 12:02] LABS: Folate 11.5 ng/mL (> or = 4.0); Prostate Specific Antigen Scr 1.97 ng/mL (<0.05-4.0); Vitamin B12 389 pg/mL (200-900)
== END 2023-10-25 08:19 | disposition home or self-care (01) ==
LOC: HO.LAB 08:18
PROVIDERS: PCP Internal Medicine; Visit Provider Internal Medicine
DX: E78.00 Pure hypercholesterolemia, unspecified (principal); H91.93 Unspecified hearing loss, bilateral; Z12.5 Encounter for screening for malignant neoplasm of prostate
CPT/HCPCS: 36415; 80053; 80061; 82607; 82746; 84153; 84439; 84443; 85025

== ENCOUNTER 2024-01-19 11:39 | Outpatient (AMB) | payer MEDICARE, MEDICAID, SELFPAY ==
[2024-01-19 11:49] VITALS: BP 180/102; PULSE 88; O2SAT 97; BMI 30.5
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
== END 2024-01-19 13:00 | disposition home or self-care (01) ==
PROVIDERS: PCP Internal Medicine; Visit Provider Internal Medicine
DX: S97.82XA Crushing injury of left foot, initial encounter (principal); N40.0 Benign prostatic hyperplasia without lower urinary tract symptoms; E66.09 Other obesity due to excess calories; Z68.32 Body mass index [BMI] 32.0-32.9, adult; R73.02 Impaired glucose tolerance (oral); I10 Essential (primary) hypertension; Z12.11 Encounter for screening for malignant neoplasm of colon
CPT/HCPCS: 99214

== ENCOUNTER 2024-04-18 09:43 | Outpatient (AMB) | payer MEDICARE, MEDICAID, SELFPAY ==
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
[2024-04-18 09:54] VITALS: BP 164/82; PULSE 84; O2SAT 97; BMI 29.4
== END 2024-04-18 10:22 | disposition home or self-care (01) ==
PROVIDERS: PCP Internal Medicine; Visit Provider Internal Medicine
DX: I10 Essential (primary) hypertension (principal); R73.02 Impaired glucose tolerance (oral); N40.0 Benign prostatic hyperplasia without lower urinary tract symptoms; E66.3 Overweight

== ENCOUNTER → 2024-04-18 09:43 | Outpatient (BNVA) | payer MEDICARE, MEDICAID, SELFPAY | PROVIDERS: PCP Internal Medicine; Visit Provider Internal Medicine | DX: I10 Essential (primary) hypertension (principal); R73.02 Impaired glucose tolerance (oral); E66.3 Overweight; Z68.29 Body mass index [BMI] 29.0-29.9, adult; Z71.3 Dietary counseling and surveillance | CPT/HCPCS: 96127; 99212 ==

== ENCOUNTER 2024-07-16 07:44 | Outpatient (REF) | payer MEDICARE, MEDICAID, SELFPAY ==
[2024-07-16 08:02] LABS: MANUAL DIFF FLAG NO
[2024-07-16 08:52] LABS: Basophils Percent Auto 0.4 % (0-2); Eosinophils Percent Auto 0.5 % (0-4); Hematocrit 41.7 % (42.0-52.0); Hemoglobin 13.7 g/dl (14.0-18.0); Imm Gran Abs Auto 0.01 X10*3/uL (0.00-0.03); Imm Gran Pct Auto 0.2 % (0.0-0.4); Immature Retic Fraction 10.5 % (2.3-13.4); Lymphocytes Absolute Auto 1.6 X10*3/uL (1.2-4.9); Lymphocytes Percent Auto 28.6 % (20-40); Mean Corpuscular HGB Conc 32.9 g/dl (31.0-36.0); Mean Corpuscular Hemoglobin 28.4 pg (27.0-33.0); Mean Corpuscular Volume 86.3 fL (80.0-98.0); Mean Platelet Volume 11.7 fL (9.4-12.4); Monocytes Absolute Auto 0.4 X10*3/uL (0.1-1.2); Neutrophils Absolute Auto 3.5 x10*3/uL (2.0-8.3); Neutrophils Percent Auto 63.3 % (45-73); Platelet Count 230 X10*3/uL (160-400); Red Blood Count 4.83 X10*6/uL (4.60-5.80); Red Cell Distribution Width 12.6 % (11.0-16.0); Reticulocyte Percent 1.5 % (0.5-1.8); Reticulocytes Absolute 0.073 X10*6/uL (0.026-0.095); White Blood Count 5.5 X10*3/uL (4.8-10.8)
[2024-07-16 08:56] LABS: Estimated Average Glucose 117 mg/dL; Hemoglobin A1c % 5.7 % (<6.0); Total Hemoglobin (HGBA1C) 3631.8099 umol/L
[2024-07-16 09:46] LABS: Alanine Aminotransferase 26 U/L (0-40); Alkaline Phosphatase 86 U/L (39-117); Anion Gap 11 (12-20); Aspartate Amino Transferase 26 U/L (5-37); Bilirubin Total 0.7 mg/dL (0.0-1.0); Blood Urea Nitrogen 12 mg/dL (9-16); Calcium 9.1 mg/dL (8.4-10.2); Carbon Dioxide 26 mmol/L (22-29); Chloride 111 mmol/L (96-108); Estimated Glomerular Filt Rate > 60; Glucose Random 93 mg/dL (60-115); Iron 143 mcg/dL (45-160); Percent Iron Saturation 43 % (15-50); Potassium 3.6 mmol/L (3.3-5.1); Sodium 144 mmol/L (135-145); Total Iron Binding Capacity 334 mcg/dL (228-428); Total Protein 7.9 g/dL (6.5-8.0); Unsaturated Iron Binding 191 ug/dL
[2024-07-16 10:05] LABS: Ferritin 30 ng/mL (20-250)
[2024-07-16 10:07] LABS: Folate 12.5 ng/mL (> or = 4.0); Vitamin B12 521 pg/mL (200-900)
== END 2024-07-16 07:45 | disposition home or self-care (01) ==
LOC: HO.LAB 07:44
PROVIDERS: PCP Internal Medicine; Visit Provider Internal Medicine
DX: R73.02 Impaired glucose tolerance (oral) (principal); E53.8 Deficiency of other specified B group vitamins
CPT/HCPCS: 36415; 80053; 82607; 82728; 82746; 83036; 83540; 85025; 85045

== ENCOUNTER 2024-07-26 10:06 | Outpatient (AMB) | payer MEDICARE, MEDICAID, SELFPAY ==
[2024-07-26 10:26] VITALS: BP 176/96; PULSE 84; RESP 20; TEMP 36.3; O2SAT 97; BMI 29.8
--- NOTE | 2024-07-26 10:26 | AM.OFFVISMDC ---
Intake Vital Signs 07/26/24 10:26 Height 5 ft 7 in Weight 190 lb 6 oz BMI 29.8 BP 176/96 H Blood Pressure Location Lt brachial Position Sitting Respiration 20 Pulse 84 Pulse Source Pulse Oximeter Temp 97.3 F Temp Source Temporal Artery Scan Pulse Oximetry (%) 97 Oxygen Delivery Method Room Air Intake Visit Reasons: AWV Vice President Quality Assurance Required: No Accompanied by: Self / Same As Patient Allergies amlodipine Allergy (Unknown, Verified 07/26/24 10:27) Unknown Medication List - Last Reconciled 07/26/24 by Gustavo Grace MD [detachable shower head As directed NS] lisinopril-hydrochlorothiazide 20-12.5 mg 1 tab PO BID metoprolol succinate ER 25 mg PO DAILY 90 days Shower Chair As directed [facility] Medical History Cyst of left kidney Obesity Hypertension Vitamin D deficiency Bilateral hearing loss Surgical History No pertinent past surgical history Family History Father Medical history unknown Mother Medical history unknown Social History Housing: Apartment Alcohol intake: never Patient Tobacco Use Status: Never used Tobacco Tobacco use type: Cigarette e-Cigarette/Vaping Use: Never Used Second Hand Smoke Exposure: No service: No Current occupational status: unemployed Cognitive needs: No Hearing needs: Yes Vision needs: Yes Questionnaire Medicare Wellness Checkup What is your age?: 65-69 (18-64) What gender do you identify with?: male During the past 4 weeks, how much have you been bothered by emotional problems such as feeling anxious, depressed, irritable, sad or downhearted, and blue?: not at all During the past 4 weeks, has your physical & emotional health limited your social activities with family, friends, neighbors, or groups?: not at all During the past 4 weeks, how much bodily pain have you generally had?: mild pain During the past 4 weeks, was someone available to help you if you needed & wanted help?: yes, some During the past 4 weeks, what was the hardest physical activity you could do for at least 2 minutes?: light Can you get to places out of walking distance without help? (For eg., can you travel alone on buses, taxis or drive your car?): Yes Can you go shopping for groceries or clothes without someone's help?: Yes Can you prepare your own meals?: Yes Can you do your housework without help?: Yes Because of any health problems, do you need the help of another person with your personal care needs such as eating, bathing, dressing or getting around the house?: No Can you handle your own money without help?: Yes During the past 4 weeks, how would you rate your health in general?: good During the past 4 weeks how have things been going for you?: pretty well Are you having difficulties driving your car?: not applicable, I don't use a car Do you always fasten your seat belt when you are in a car?: yes, sometimes During past 4 weeks, have you been bothered by the following: never: Falling or dizzy when standing up, Sexual problems?, Trouble eating well?, Teeth or denture problems?, Problems using the telephone? and Tiredness or fatigue? Have you fallen 2 or more times in the past year?: No Are you afraid of falling?: No Are you a smoker?: no During the past 4 weeks, how many drinks of wine, beer, or other alcoholic beverages did you have?: no alcohol at all Do you exercise for about 20 minutes 3 or more times a week?: no, I usually do not exercise this much Have you been given information to help with the following?: yes: Keeping track of your medications? and no: Hazards in your house that might hurt you? How often do you have trouble taking medicines the way you have been told to take them?: I always take medicine as prescribed How confident are you that you can control & manage most of your health problems?: somewhat confident What is your race?: Black or PHQ-9 Over the last 2 weeks, how often have you been bothered by any of the following problems? 1. Little interest or pleasure in doing things: not at all 2. Feeling down, depressed, or hopeless: not at all 3. Trouble falling or staying asleep, or sleeping too much: not at all 4. Feeling tired or having little energy: not at all 5. Poor appetite or overeating: not at all 6. Feeling bad about yourself - or that you are a failure or have let yourself or your family down: not at all 7. Trouble concentrating on things, such as reading the newspaper or watching television: not at all 8. Moving or speaking so slowly that other people could have noticed. Or the opposite - being so fidgety or restless that you have been moving around a lot more than usual: not at all 9. Thoughts that you would be better off or of hurting yourself in some way: not at all Total score: 0 Depression Screening Interpretation: Negative Depression Screening Done: Yes 96765 - PHQ-9 Billing: Yes Source: Developed by Drs. Larry Coon, Melissa Andujar, Prabhu Gramajo and colleagues, with an educational kathy from [employer]. Review of Systems Const Denies poor appetite and Denies weakness Eyes Denies no additional complaints ENT Reports Normal hearing present, Denies dizziness, Denies nasal congestion, Denies tinnitus and Denies sore throat Card Denies chest pain, Denies syncope, Denies rapid heart rate and Denies dyspnea Resp Denies cough and Denies dyspnea GI Denies change in stool character, Reports constipation, Denies diarrhea, Denies nausea and Denies vomiting Denies dysuria and Denies urinary frequency Neuro Reports Normal hearing present, Denies confusion, Denies dizziness, Denies syncope and Denies weakness Psych Denies confusion Physical Exam Vital Signs: Last Vital Signs Temp 97.3 F 07/26/24 10:26 Pulse 84 07/26/24 10:26 Resp 20 07/26/24 10:26 BP 176/96 H 07/26/24 10:26 Pulse Ox 97 07/26/24 10:26 Oxygen Delivery Method Room Air 07/26/24 10:26 BMI result Body Mass Index 29.8 Const General: No confusion Orientation/consciousness: No confusion HEENT Head: Yes normocephalic Ears: external ears normal and TM's normal bilaterally Face and sinus: Yes normal facial exam Mouth: moist mucous membranes Throat: Yes tonsils normal Eyes Conjunctivae: conjunctivae normal Pupils: Equal, round and reactive pupils present and Pupil accommodation reflex normal Direct Ophthalmoscopy: normal light reflex Neck Neck: No lymphadenopathy Thyroid: Thyroid normal Chest Chest palpation & inspection: normal inspection of the chest Resp Effort & Inspection: normal respiratory effort and no audible wheezes Auscultation: clear to auscultation bilaterally, no crackles, no wheezes and lung sounds not diminished Cardio Rate: regular rate Rhythm: regular rhythm Peripheral pulses: radial pulses present and dorsalis pedis present GI Palpation (GI): no masses Auscultation: normal bowel sounds and normoactive bowel sounds Rectal Exam - Male: Yes deferred Skin General skin exam: no rashes or lesions noted Rashes: no rashes Neuro General: No confusion Cranial nerves: Yes Equal, round and reactive pupils present and Yes Normal hearing present Cognition (Neuro): normal cognition Gait exam (Neuro): Normal gait present Motor exam (neuro): 5/5 motor strength present throughout Deep tendon reflexes (DTR's): Right brachioradialis reflex intensity grade: 2+, Left brachioradialis reflex intensity grade: 2+, Right patellar reflex intensity grade: 2+ and Left patellar reflex intensity grade: 2+ Extrem General: No edema Assessment & Plan Assessment & Plan (1) Annual wellness visit: Code(s): Z00.00 - Encounter for general adult medical examination without abnormal findings Plan: As planned (2) Overweight (BMI 25.0-29.9): Code(s): E66.3 - Overweight Plan: Diet and exercise (3) Hypertension: Code(s): I10 - Essential (primary) hypertension Qualifiers: Hypertension type: essential hypertension Qualified Code(s): I10 - Essential (primary) hypertension Plan: Continue with blood pressure medication. Decrease salt intake and exercise patient on lisinopril 20 mg twice a day with metoprolol 25 mg once a day (4) Impaired glucose tolerance: Code(s): R73.02 - Impaired glucose tolerance (oral) Plan: Decrease the amount of carbohydrate intake, pasta, bread, rice and potatoes are all sugar and that is aside from all the sweet stuff, remember that fruits are good but they are Sweet also. (5) BPH (benign prostatic hyperplasia): Code(s): N40.0 - Benign prostatic hyperplasia without lower urinary tract symptoms Qualifiers: Lower urinary tract symptom presence: symptoms absent Qualified Code(s): N40.0 - Benign prostatic hyperplasia without lower urinary tract symptoms Plan: Continue to monitor (6) Colon cancer screening: Code(s): Z12.11 - Encounter for screening for malignant neoplasm of colon Plan History of Present Illness The patient is a 58-year-old male presenting for an annual wellness visit. He has a diagnosis of essential hypertension, currently being managed with lisinopril and metoprolol, but continues to experience difficulties in controlling his blood pressure. Discussions around consulting a stacker straightener were noted to assist in managing this. He also has impaired glucose tolerance with stable glucose levels reported recently. His mild anemia has shown improvement, with hemoglobin levels gradually increasing in recent assessments. Though the prostate is described as slightly enlarged, he is asymptomatic regarding urinary issues and tested without significant abnormalities in prostate screening. The patient's osteoarthritis leads to joint discomfort that might be partially attributed to sedentary postures, and regular stretches were recommended to mitigate pain. Additional screenings and past lab results provided a comprehensive overview of the patient's condition, including stable renal function and normal liver panel results. He maintains a careful diet and exercise routine with moderate caffeine intake despite facing joint discomfort given osteoarthritis symptoms. Health Maintenance - Dietary and exercise measures continue to manage glucose levels. - Regular cholesterol screenings, last tested in October 2023. - Annual prostate examinations, digital rectal exams conducted at this visit. - Eye exams every two years and regular hearing aid checks. - Discussion on the necessity of flu vaccinations given current high risks for flu, COVID, and RSV. - Information provided about completing healthcare proxy forms for emergencies. Social History - No smoking or alcohol use. - Regular daily consumption of two caffeinated teas. - Engages in regular exercises; discussed the importance of stretching for joint health. - Lives in an environment that could influence rest, mentions of temperature discomfort at night. Review of Systems - Cardiovascular: Denies chest pain, palpitations. - Gastrointestinal: Denies nausea, vomiting, heartburn, difficulties in swallowing, bowel movement issues, and constipation. - Genitourinary: Denies problems with urination, reports no nocturnal frequency. - Respiratory: Denies shortness of breath or awakening short of breath. - Musculoskeletal: Reports joint pain, managed with stretches and exercises. Physical Exam General: Cooperative, healthy appearing, comfortable, no acute distress and well developed Orientation: Patient oriented x3 Limitations: No limitations Head: Normal to inspection Ears: Hearing grossly normal bilaterally, hearing aid tested regularly Nose: Normal external nose present Face and sinus: Normal facial exam Eyes: Appearance normal, both eyes and all related structures Neck: Normal visual inspection and Yes full ROM Respiratory: Normal respiratory effort and able to speak in complete sentences. Clear to auscultation bilaterally Cardiovascular: Regular rate and rhythm. Normal S1 and S2 GI: Normal to inspection. Soft to palpation and nontender Skin: No rashes or lesions noted Neuro: Patient oriented x3 Extremities: Normal to inspection, joint pains noted, arthritis present Results - Labs: Hemoglobin A1c at 5.7%, blood glucose at 93 mg/dL, anemia improved from 13.3 to 13.7 g/dL, normal kidney and liver function tests. - Tests: Last cholesterol screening in October 2023 with LDL at 81 mg/dL. Plan Continue essential hypertension management with a consideration for nephrology consultation due to persistent elevation. Maintain current dietary and lifestyle interventions for glucose tolerance and monitor improvements in anemia through regular laboratory assessments. Benign prostatic hyperplasia and osteoarthritis management include symptom monitoring and encouraging exercises suitable for joint health. Regular preventative screenings and vaccinations are emphasized for continued health maintenance. Interventions are discussed based on the patient's stability in cholesterol and other metabolic parameters. Patient was informed and verbally consented to the use of an ambient scribe for clinic note documentation during this visit. Discussion Notes We reviewed the elevated blood pressure and considered a stacker straightener consultation to enhance management strategies. There was a detailed discussion on current interventions for glucose and cholesterol levels, noting recent stable results. We covered anemia improvement and reiterated the importance of ongoing monitoring. Prostate health remains satisfactory; however, attention to any emerging urinary symptoms was recommended. We discussed flu and other relevant vaccinations, emphasizing the importance of prevention in light of widespread viral illnesses. Consent forms for health proxies were addressed. Follow-up arrangements were set, with an understanding of ongoing contact with specialist care if needed. The patient was given guidance on joint pain management and the continuation of his home exercise regimen to aid in comfort and functionality. Patient Instructions - Maintain current blood pressure medications; expect call from stacker straightener. - Continue current diet and exercise plan for impaired glucose tolerance. - Adhere to joint stretch exercises to alleviate arthritis discomfort. - Monitor any urinary changes or discomfort. - Consider flu vaccination due to increased risks, discuss further if needed. - Complete and submit healthcare proxy forms for emergencies. - Return for follow-up in three months or sooner if symptoms change. Orders: Referrals Nephrology Referral I10 - Essential (primary) hypertension Cologuard Test Z12.11 - Encounter for screening for malignant neoplasm of colon Medications: New lisinopril-hydrochlorothiazide 20-12.5 mg 1 tab PO BID 180 tabs 1RF I10 - Essential (primary) hypertension Discontinued lisinopril Discontinued Reason: Doctor's Order 20 mg PO BID 180 tabs 2RF I10 - Essential (primary) hypertension Quality Reporting (2019) Depression/Bipolar (159/160/161/177) PHQ-9: Total score: 0 Coding Level of Care Code Medicare Subsequent (G0439) Diagnoses Annual wellness visit Z00.00 Overweight (BMI 25.0-29.9) E66.3 Essential hypertension I10 Hypertension type: essential hypertension Impaired glucose tolerance R73.02 Benign prostatic hyperplasia without lower urinary tract symptoms N40.0 Lower urinary tract symptom presence: symptoms absent Colon cancer screening Z12.11 Additional Codes PHQ-9 - 93728 - PHQ-9 Billing: Yes ([id number])
== END 2024-07-26 11:06 | disposition home or self-care (01) ==
PROVIDERS: PCP Internal Medicine; Visit Provider Internal Medicine
DX: Z00.00 Encounter for general adult medical examination without abnormal findings (principal); I10 Essential (primary) hypertension; R73.02 Impaired glucose tolerance (oral); N40.0 Benign prostatic hyperplasia without lower urinary tract symptoms; E66.3 Overweight; Z12.11 Encounter for screening for malignant neoplasm of colon

== ENCOUNTER → 2024-07-26 10:06 | Outpatient (BNVA) | payer MEDICARE, MEDICAID, SELFPAY | PROVIDERS: PCP Internal Medicine; Visit Provider Internal Medicine | DX: Z00.00 Encounter for general adult medical examination without abnormal findings (principal); E66.3 Overweight; Z68.29 Body mass index [BMI] 29.0-29.9, adult; I10 Essential (primary) hypertension; R73.02 Impaired glucose tolerance (oral); N40.0 Benign prostatic hyperplasia without lower urinary tract symptoms; Z71.3 Dietary counseling and surveillance | CPT/HCPCS: 96127 ==

== ENCOUNTER 2024-08-13 12:46 | Outpatient (AMB) | payer MEDICARE, MEDICAID, SELFPAY ==
--- NOTE | 2024-08-13 13:04 | MHC.OFFVIS ---
Vital Signs 08/13/24 13:08 Height 5 ft 7 in Weight 193 lb 2 oz BMI 30.2 Respiration 18 Pulse 80 Intake Visit Reasons: Colonoscopy Screening Intake Note: Patient is seen in office for colonoscopy screening. Pt c/o: here for 1st colonoscopy, denies any n/v/d/c, no abdominal pain or concerns Barrel Liner Required: No Accompanied by: Other Relationship Allergies amlodipine Allergy (Unknown, Verified 08/13/24 13:07) Unknown Medication List - Last Reconciled 08/13/24 by Ryan Ritter MD [detachable shower head As directed NS] lisinopril-hydrochlorothiazide 20-12.5 mg 1 tab PO BID metoprolol succinate ER 25 mg PO DAILY 90 days Shower Chair As directed sodium,potassium,mag sulfates 17.5-3.13-1.6 gram (Suprep Bowel Prep Kit) DILUTE; drink full amount early evening before AND next morning at least 2 hr before procedure; follow w 960 mL water PO HPI HPI Colonoscopy Screening: Details: 58-year-old male referred for screening colonoscopy. He denies significant GI complaints. He denies any family history of colon cancer. He lives alone but is being helped by staff from [facility] who helps him 2 to 3 times a week. He seems to have some cognitive difficulties. [facility] Medical History Cyst of left kidney Obesity Hypertension Vitamin D deficiency Bilateral hearing loss Surgical History No pertinent past surgical history Family History Father Medical history unknown Mother Medical history unknown Social History Housing: Apartment Alcohol intake: never Patient Tobacco Use Status: Never used Tobacco Tobacco use type: Cigarette e-Cigarette/Vaping Use: Never Used Second Hand Smoke Exposure: No service: No Current occupational status: unemployed Cognitive needs: No Hearing needs: Yes Vision needs: Yes Review of Systems Const Denies chills and Denies fever(s) Card Denies chest pain, Denies dyspnea and Denies dyspnea on exertion Resp Denies cough, Denies dyspnea and Denies dyspnea on exertion GI Denies hematochezia and Denies change in bowel habits Denies hematuria and Denies difficulty urinating Musc Denies back pain and Denies limited range of motion Neuro Denies focal weakness and Denies convulsions Psych Denies depression and Denies mood swings Physical Exam Const General: comfortable and no acute distress Orientation/consciousness: patient oriented x3 Neck Neck: Yes no lymphadenopathy Resp Auscultation: clear to auscultation bilaterally Cardio Rhythm: regular rhythm GI Palpation (GI): Soft to palpation, nontender and no guarding Neuro General: patient oriented x3 Assessment & Plan Assessment & Plan (1) Colon cancer screening: Code(s): Z12.11 - Encounter for screening for malignant neoplasm of colon Category: Medical Plan: I explained to him the technique of colonoscopy for screening. I reviewed the risks including but not limited to bleeding and perforation, as well as the benefits and alternatives. He understands and wants to proceed. The patient seems to have some cognitive difficulties but according to his friend, he is capable of giving consent. Medications: New sodium,potassium,mag sulfates 17.5-3.13-1.6 gram (Suprep Bowel Prep Kit) DILUTE; drink full amount early evening before AND next morning at least 2 hr before procedure; follow w 960 mL water PO 354 mL 0RF Coding Level of Care Code New Pt Level 3 (35388) Diagnoses Colon cancer screening Z12.11
[2024-08-13 13:08] VITALS: PULSE 80; RESP 18; BMI 30.2
== END 2024-08-13 13:33 | disposition home or self-care (01) ==
PROVIDERS: PCP Internal Medicine; Visit Provider Surgery
DX: Z12.11 Encounter for screening for malignant neoplasm of colon (principal)
CPT/HCPCS: 99203

== ENCOUNTER → 2024-08-13 12:46 | Outpatient (BNVA) | payer MEDICARE, MEDICAID, SELFPAY | PROVIDERS: PCP Internal Medicine; Visit Provider Surgery | DX: Z01.818 Encounter for other preprocedural examination (principal) | CPT/HCPCS: 99202 ==

== ENCOUNTER 2024-09-28 06:45 | Day surgery (SDC) | payer MEDICARE, MEDICAID, SELFPAY ==
[2024-09-26 11:02] VITALS: BMI 30.2
--- NOTE | 2024-09-27 09:54 | HO.ANESPROP2 ---
Documented by User: Chata Byrd NP 09/27/24 09:55 HPI - Anesthesia Eval Consult details Narrative: 58yo M for Colonoscopy with possible Polypectomy [facility] Active Problems Active Problems: All Active Problems Annual wellness visit (Acute) Overweight (BMI 25.0-29.9) (Acute) Colon cancer screening (Acute) Right wrist pain (Acute) Crushing injury of left foot (Acute ~07/04/23) Fracture of third metatarsal bone of left foot (Acute ~07/04/23) Fracture of second metatarsal bone of left foot (Acute ~07/04/23) Costochondritis (Acute) BPH (benign prostatic hyperplasia) (Acute) Left wrist pain (Acute) Annual physical exam (Acute) Colonoscopy refused (Acute) Impaired glucose tolerance (Acute) Vitamin B12 deficiency (Acute) Bilateral hearing loss (Acute) Obesity (Acute) Hypertension (Acute) Past Medical History Medical History BPH (benign prostatic hyperplasia) Cyst of left kidney Obesity Hypertension Vitamin D deficiency Bilateral hearing loss Family History Family History Father Medical history unknown Mother Medical history unknown Surgical History Surgical History No pertinent past surgical history Social History Social History Housing: Apartment Are you a primary home care music therapist to a significant other at home: No Do you presently have visiting nurse or other home services: No Alcohol intake: never Patient Tobacco Use Status: Never used Tobacco Tobacco use type: Cigarette e-Cigarette/Vaping Use: Never Used Second Hand Smoke Exposure: No Use of substances other than those prescribed or required for medical reasons: No Have you been hit, kicked, punched, or otherwise hurt by someone within the past year? If so, by whom?: No Are you DNR?: No Advance Directives: No Advance Directives Information Provided: Yes Poor oral hygiene: Yes service: No Current occupational status: unemployed Cognitive needs: No Hearing needs: Yes Vision needs: Yes Meds Allergies Allergy/AdvReac Type Severity Reaction Status Date / Time amlodipine Allergy Unknown Unknown Verified 09/28/24 07:07 Exam Height,Weight and Vital Signs: Height 5 ft 7 in Weight 87.543 kg Assessment and Plan Assessment Anesthesia Assessment: Chart Reviewed Documented by User: Amalia Cruz MD 09/28/24 07:17 [facility] Past Medical History Medical History BPH (benign prostatic hyperplasia) Cyst of left kidney Obesity Hypertension Vitamin D deficiency Bilateral hearing loss Family History Family History Father Medical history unknown Mother Medical history unknown Family history of problems with anesthesia: No Surgical History Surgical History No pertinent past surgical history History of Problems with Anesthesia: No Social History Social History Housing: Apartment Are you a primary home care music therapist to a significant other at home: No Do you presently have visiting nurse or other home services: No Alcohol intake: never Patient Tobacco Use Status: Never used Tobacco Tobacco use type: Cigarette e-Cigarette/Vaping Use: Never Used Second Hand Smoke Exposure: No Use of substances other than those prescribed or required for medical reasons: No Have you been hit, kicked, punched, or otherwise hurt by someone within the past year? If so, by whom?: No Are you DNR?: No Advance Directives: No Advance Directives Information Provided: Yes Poor oral hygiene: Yes service: No Current occupational status: unemployed Cognitive needs: No Hearing needs: Yes Vision needs: Yes Meds Allergies Allergy/AdvReac Type Severity Reaction Status Date / Time amlodipine Allergy Unknown Unknown Verified 09/28/24 07:07 Exam Airway Mallampati Class: II (poor dentition, missing multiple teeth, denies anything loose) TM Dist: >3cm Neck ROM: Full Heart: rrr Lungs: cya Assessment and Plan Assessment Anesthesia Assessment: Anesthesia Plan Discussed Final Anesthetic Review Family History of Problems with Anesthesia: No History of Problems with Anesthesia: No NPO: Yes ASA Class: II Final Preanesthetic Review: No Changes in Pt Med Stat, Meds/Allgs Chart Reviewed and Consent Obtained/Reviewed Patient Risk: Low Procedure Risk: Low Anesthetic Plan Anesthetic Plan: MAC: Disposition: Standard PACU
[2024-09-28 07:08] VITALS: BP 157/101; PULSE 89; RESP 15; TEMP 36.3; O2SAT 99; BMI 28.7
[2024-09-28] MEDS: Lactated Ringers 1,000 ML 100 ML IVCONT (07:16)
--- NOTE | 2024-09-28 07:50 | MHC.SHP ---
Pre-Procedural Eval Section A - 24 Hr Update-Section A only Date of Service: 09/28/24 Section B - Complete if H&P > 30 days Chief Complaint: screening Details of Present Illness: for screening colonoscopy, no GI complaints Relevant Family History (Specify if Yes): No Relevant Social History: None Present Medications: see Short Stay Collaborative assessment Medical History: Significant History (HTN, obesity, BPH, mild cognitivie impairment) Allergies: Allergies Allergy/AdvReac Type Severity Reaction Status Date / Time amlodipine Allergy Unknown Unknown Verified 09/28/24 07:07 Review of Systems Sugical H&P ROS: Negative: Constitution, Cardiovascular and Respiratory Exam Surgical H&P Exam: Normal: Heart, Normal: Extremities and Normal: Abdomen Plan Diagnosis/Plan: Unchanged I have reviewed the history and physical and performed a pertinent physical examination on my patient. No changes have occurred unless specified. Time Spent With Patient Time: Total time managing care of this patient today ____ minutes.
[2024-09-28 08:50] VITALS: BP 102/57; PULSE 70; RESP 16; TEMP 36.3; O2SAT 96
[2024-09-28 08:55] VITALS: BP 109/59; PULSE 72; RESP 16; O2SAT 96
[2024-09-28 09:00] VITALS: BP 116/70; PULSE 71; RESP 17; O2SAT 96
[2024-09-28 09:05] VITALS: BP 122/76; PULSE 73; RESP 17; TEMP 36.4; O2SAT 97
--- NOTE | 2024-09-28 09:09 | HO.OPN-COLON ---
Colonoscopy Operative Note Operative Note Date of Service: 09/28/24 Narrative: Preop diagnosis: Colon cancer screening Postop diagnosis:1. Small polyp, about 2 mm in the distal right colon, removed with cold forceps 2. Polyp, about 1 cm, at level 30 cm, removed with a hot snare 3. Small polyp, about 2 mm at level 20, removed with a cold forceps 4. Small hyperplastic polyps x3, about 1 each at level 10 cm removed with cold forceps 5. Mild diverticulosis left colon Procedure: Colonoscopy with polypectomy using cold forceps x3 polypectomy using hot snare x1 Surgeon: Ryan Ritter MD The patient is a 58-year-old male here for his 1st screening colonoscopy. He understood the technique of the planned procedure as well as the risks, benefits, and alternatives The patient was brought to the operating room and placed in left lateral decubitus position under monitored anesthesia care. A surgical time-out was done. A full digital rectal exam was done and this did not reveal any significant anal lesions. The tip of the Olympus colonoscope was gently introduced through the anal orifice advanced with insufflation all the way to the cecum. The cecum was intubated. The cecum was identified by visualization of the ileocecal valve as well as the appendiceal orifice. The cecal mucosa was unremarkable. The scope was gradually withdrawn with careful examination of the entire colonic mucosa being done with scope withdrawal. The patient had adequate bowel prep so it was unlikely that any lesion may have been missed. There was note of occasional diverticuli in the left colon. There was note of a small polyp about 2 mm in the distal right colon removed with multiple bites of the cold forceps. A polyp about 1 cm at level 30 cm was removed he had hot snare. A small polyp about 2 mm at level 20 was removed with cold forceps. Multiple small hyperplastic polyps were seen in the rectum at level 10 cm removed with multiple bites of the cold forceps. The rectum was reached and there were no lesions seen. The anal canal was unremarkable. The scope was then withdrawn completely with desufflation The patient tolerated procedure well. There were no immediate complications. Depending in the path report, I may recommend another colonoscopy within the next 5 years.
== END 2024-09-28 09:30 | disposition home or self-care (01) ==
PROVIDERS: PCP Internal Medicine; Visit Provider Surgery
PROC: 0DBE8ZZ Excision of Large Intestine, Via Natural or Artificial Opening Endoscopic (ICD-10-PCS; CPT 45385; principal; 2024-09-28 08:40)
DX: Z12.11 Encounter for screening for malignant neoplasm of colon (principal); D12.2 Benign neoplasm of ascending colon; D12.5 Benign neoplasm of sigmoid colon; K62.1 Rectal polyp; K57.30 Diverticulosis of large intestine without perforation or abscess without bleeding; K64.8 Other hemorrhoids; I10 Essential (primary) hypertension; E55.9 Vitamin D deficiency, unspecified; H91.93 Unspecified hearing loss, bilateral; Z79.899 Other long term (current) drug therapy; Z88.8 Allergy status to other drugs, medicaments and biological substances; Z56.0 Unemployment, unspecified
CPT/HCPCS: 45385; 45380; 88305; J1596; J2003; J2704

== ENCOUNTER → 2024-09-28 06:45 | Outpatient (BNV) | payer MEDICARE, MEDICAID, SELFPAY | PROVIDERS: PCP Internal Medicine; Visit Provider Surgery | DX: Z12.11 Encounter for screening for malignant neoplasm of colon (principal); K63.5 Polyp of colon; K57.90 Diverticulosis of intestine, part unspecified, without perforation or abscess without bleeding | CPT/HCPCS: 45380; 45385 ==

== ENCOUNTER 2024-10-11 11:55 | Outpatient (AMB) | payer MEDICARE, MEDICAID, SELFPAY ==
--- NOTE | 2024-10-11 11:58 | A.OFFVIS_ITS ---
Vital Signs 10/11/24 12:02 Weight 185 lb BP 188/82 H Blood Pressure Location Rt brachial Position Sitting Pulse 65 Intake Visit Reasons: S/P colonoscopy Intake Note: Patient here s/o Colonoscopy. Patient c/o: reports procedure went well. 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 Accompanied by: friend/transportation Tahir Avelar Allergies amlodipine Allergy (Unknown, Verified 10/11/24 12:03) Unknown Medication List - Last Reconciled 10/11/24 by Ryan Ritter MD [detachable shower head As directed NS] lisinopril-hydrochlorothiazide 20-12.5 mg 1 tab PO BID metoprolol succinate ER 25 mg PO DAILY 90 days Shower Chair As directed sodium,potassium,mag sulfates 17.5-3.13-1.6 gram (Suprep Bowel Prep Kit) DILUTE; drink full amount early evening before AND next morning at least 2 hr before procedure; follow w 960 mL water PO HPI HPI S/P colonoscopy: Details: He had undergone his 1st colonoscopy for screening 2 weeks ago. He tolerated procedure well. He denies any problems after the procedure. He denies any abdominal pain. He has any bleeding. [facility] Medical History (Updated 10/11/24 @ 12:22 by Ryan Ritter MD) Tubular adenoma of colon BPH (benign prostatic hyperplasia) Cyst of left kidney Obesity Hypertension Vitamin D deficiency Bilateral hearing loss Surgical History No pertinent past surgical history Family History Father Medical history unknown Mother Medical history unknown Social History Housing: Apartment Are you a primary intensive care ambulance paramedic to a significant other at home: No Do you presently have visiting nurse or other home services: No Alcohol intake: never Patient Tobacco Use Status: Never used Tobacco Tobacco use type: Cigarette e-Cigarette/Vaping Use: Never Used Second Hand Smoke Exposure: No service: No Current occupational status: unemployed Cognitive needs: No Hearing needs: Yes Vision needs: Yes Review of Systems Const Denies chills and Denies fever(s) Card Denies chest pain, Denies dyspnea and Denies dyspnea on exertion Resp Denies cough, Denies dyspnea and Denies dyspnea on exertion GI Denies hematochezia and Denies change in bowel habits Denies hematuria and Denies difficulty urinating Musc Denies back pain and Denies limited range of motion Neuro Denies focal weakness and Denies convulsions Psych Denies depression and Denies mood swings Physical Exam Vital Signs: Last Vital Signs Pulse 65 10/11/24 12:02 BP 188/82 H 10/11/24 12:02 Const General: comfortable and no acute distress Resp Effort & Inspection: normal respiratory effort Cardio Rate: regular rate GI Palpation (GI): Soft to palpation, not firm and nontender Assessment & Plan Assessment & Plan (1) Tubular adenoma of colon: Code(s): D12.6 - Benign neoplasm of colon, unspecified Category: Medical Plan: He is status post colonoscopy for screening. I removed multiple small polyps and 2 of these tubular adenomas. I therefore have recommended repeating the colonoscopy in 5 years instead of 10 years. He understands the plan well. His best friend who access his advocate was with him during the visit. Coding Level of Care Code Est Pt Level 2 (84343) Diagnoses Tubular adenoma of colon D12.6
[2024-10-11 12:02] VITALS: BP 188/82; PULSE 65
== END 2024-10-11 12:21 | disposition home or self-care (01) ==
LOC: HO.HGS 11:56
PROVIDERS: PCP Internal Medicine; Visit Provider Surgery
DX: D12.6 Benign neoplasm of colon, unspecified (principal)
CPT/HCPCS: 99212

== ENCOUNTER → 2024-10-11 11:55 | Outpatient (BNVA) | payer MEDICARE, MEDICAID, SELFPAY | PROVIDERS: PCP Internal Medicine; Visit Provider Surgery | DX: D12.6 Benign neoplasm of colon, unspecified (principal) | CPT/HCPCS: 99212 ==

== ENCOUNTER 2024-11-14 14:25 | Outpatient (AMB) | payer MEDICARE, MEDICAID, SELFPAY ==
--- NOTE | 2024-11-14 14:38 | MHC.PC.OV ---
Vital Signs 11/14/24 14:39 Height 5 ft 7 in Weight 186 lb 4 oz BMI 29.2 BP 180/100 H Blood Pressure Location Lt brachial Position Sitting Pulse 80 Pulse Source Pulse Oximeter Temp 97.5 F Temp Source Temporal Artery Scan Pulse Oximetry (%) 98 Oxygen Delivery Method Room Air Intake Visit Reasons: 3 month f/u Intake Note: Patient is here to follow up on HTN. 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 Lactation Consultant: Not Required per policy Accompanied by: Self / Same As Patient Allergies amlodipine Allergy (Unknown, Verified 11/14/24 14:48) Unknown Medication List - Last Reconciled 11/14/24 by Bella Torres PA-C [detachable shower head As directed NS] lisinopril-hydrochlorothiazide 20-12.5 mg 1 tab PO BID metoprolol succinate ER 25 mg PO DAILY 90 days Shower Chair As directed sodium,potassium,mag sulfates 17.5-3.13-1.6 gram (Suprep Bowel Prep Kit) DILUTE; drink full amount early evening before AND next morning at least 2 hr before procedure; follow w 960 mL water PO Tobacco use date assessed: 11/14/24 Dental Screening Dental Screen Date: 11/14/24 Did you have a dental visit in the last 12 months?: Yes Did you have a dental problem in the last 6 months where you did not have access to dental care?: No Was dental information given to patient?: Patient has dentist HPI 3 month f/u HPI Details 59 year old male with past medical history of hypertension, impaired glucose tolerance and obesity last seen 07/2024 coming in for follow up. At last visit Lisinopril was changed to Lisinopril-HCTZ. Patient tells us today he occasionally miss his second dose of Lisinopril-HCTZ. He does have good compliance with his morning medications. He will occasionally check his BP at [facility] and does not recall the values. [facility] Medical History Tubular adenoma of colon BPH (benign prostatic hyperplasia) Cyst of left kidney Obesity Hypertension Vitamin D deficiency Bilateral hearing loss Surgical History No pertinent past surgical history Family History Father Medical history unknown Mother Medical history unknown Social History Housing: Apartment Are you a primary resident care supervisor to a significant other at home: No Do you presently have visiting nurse or other home services: No Alcohol intake: never Patient Tobacco Use Status: Never used Tobacco Tobacco use type: Cigarette e-Cigarette/Vaping Use: Never Used Second Hand Smoke Exposure: No service: No Current occupational status: unemployed Cognitive needs: No Hearing needs: Yes Vision needs: Yes Questionnaire Thrive Questionnaire Date Thrive assessed: 07/26/24 I am a: Patient What is your living situation today?: I have a steady place to live Within the past 12 months, did the food you bought not last and you didn't have the money to get more?: Never true Within the past 12 months, did you worry whether your food would run out before you got money to buy more?: Never true Do you have trouble paying for medicines?: No Do you have trouble getting transportation to medical appointments?: No Do you have trouble paying your heating and electricity bill?: No Do you have trouble taking care of your child, family member or friend?: No Do you have trouble with day-to-day activities such as bathing, preparing meals, shopping, managing finances, etc.?: No Are you currently unemployed and looking for a job?: No Are you interested in more education?: No Please select the resources that you would like help with: None Currently or been in a relationship where the following occur: No concerns reported THRIVE Score: 0 AUDIT C Alcohol Use Questionnaire (AUDIT-C) 1. How often do you have a drink containing alcohol?: Never Total Score: 0 MICHAEL-7 AMB Questionnaire MICHAEL-7 Date MICHAEL - 7 assessed: 11/14/24 Feeling nervous, anxious, or on edge: 0 = Not at all Not being able to stop or control worryin = Not at all Worrying too much about different things: 0 = Not at all Trouble relaxin = Not at all Being so restless that it is hard to sit still: 0 = Not at all Becoming easily annoyed or irritable: 0 = Not at all Feeling afraid as if something awful might happen: 0 = Not at all Total MICHAEL-7 score (0-4 normal; 5-9 mild; 10-14 moderate; 15-21 severe): 0 Source: Developed by Drs. Larry Coon, Melissa Andujar, Prabhu Gramajo and colleagues, with an educational kathy from [employer]. Review of Systems Const Denies body aches, Denies chills, Denies fever(s), Denies headache(s) and Denies poor appetite Eyes Reports no additional complaints ENT Denies dysphagia, Denies dizziness, Denies headache(s) and Denies odynophagia Card Denies chest pain, Denies syncope, Denies edema, Denies irregular heart rhythm, Denies lightheadedness and Denies dyspnea Resp Denies cough and Denies dyspnea GI Denies abdominal pain, Denies constipation, Denies dysphagia, Denies diarrhea, Denies nausea, Denies odynophagia and Denies vomiting Reports no additional complaints Musc Reports no additional complaints and Denies abnormal gait Skin/Breast Reports system reviewed and no additional complaints, except as documented Neuro Denies abnormal gait, Denies dizziness, Denies syncope and Denies headache(s) Psych Reports no additional complaints Physical exam (Primary Care) Vital Signs: Last Vital Signs Temp 97.5 F 11/14/24 14:39 Pulse 80 11/14/24 14:39 BP 180/100 H 11/14/24 14:39 Pulse Ox 98 11/14/24 14:39 Oxygen Delivery Method Room Air 11/14/24 14:39 BMI result Body Mass Index 29.2 Tobacco/Smoking Status: Tobacco use Status Tobacco use date assessed 11/14/24 11/14/24 14:47 Patient Tobacco Use Status Never used Tobacco 11/14/24 14:47 Tobacco use type Cigarette 11/14/24 14:47 e-Cigarette/Vaping Use Never Used 11/14/24 14:47 Thrive Assessment: Date of Thrive Assessment Date Thrive assessed 07/26/24 11/14/24 14:47 Currently or been in a relationship where the following occur: No concerns reported Const General: cooperative, healthy appearing, comfortable and no acute distress Orientation/consciousness: patient oriented x3 HENMT Head: Yes normocephalic Ears: hearing grossly normal bilaterally General nose exam: Normal external nose present Eyes General: appearance normal, both eyes and all related structures Conjunctivae: conjunctivae normal Neck Neck: Yes full ROM and Yes no lymphadenopathy Resp Effort & Inspection: normal respiratory effort Auscultation: clear to auscultation bilaterally, no crackles, no rales, no rhonchi and no wheezes Cardio Rate: regular rate Rhythm: regular rhythm Skin General skin exam: no rashes or lesions noted Neuro General: patient oriented x3 Gait exam (Neuro): Normal gait present Extrem General: Yes normal to inspection, Yes full ROM and No edema Psych Affect: normal affect Attitude: cooperative Insight: Good insight present (Psych) Judgement: Good judgement present (Psych) Coding Level of Care Code Est Pt Level 3 (13031) Diagnoses Essential hypertension I10 Hypertension type: essential hypertension Impaired glucose tolerance R73.02 Class 1 obesity due to excess calories without serious comorbidity with body mass index (BMI) of 32.0 to 32.9 in adult E66.09; Z68.32 Obesity type: due to excess calories Obesity classification: adult class 1 (BMI 30 - 34.9) Serious obesity comorbidity presence: without serious comorbidity Body mass index: BMI 32.0-32.9 Assessment & Plan Assessment & Plan (1) Hypertension: Code(s): I10 - Essential (primary) hypertension Category: Medical Qualifiers: Hypertension type: essential hypertension Qualified Code(s): I10 - Essential (primary) hypertension Plan: Continue on current blood pressure medication. Avoid salt intake and encourage healthy diet and regular exercise. Plan to work on better compliance with Lisinopril-HCTZ and increase Metoprolol to 50mg. Discussed nephrology referral which was declined by the patient today. He is currently asymptomatic but I did review with patient red flag symptoms and when to present for re-evaluation. (2) Impaired glucose tolerance: Code(s): R73.02 - Impaired glucose tolerance (oral) Category: Medical Plan: Decrease the amount of carbohydrates such as pasta, bread, rice, and potatoes and limit the amount of sweets. Although fruits are generally healthy they should be eaten in moderation as they are still high in sugar. (3) Obesity: Code(s): E66.9 - Obesity, unspecified Category: Medical Qualifiers: Obesity type: due to excess calories Obesity classification: adult class 1 (BMI 30 - 34.9) Serious obesity comorbidity presence: without serious comorbidity Body mass index: BMI 32.0-32.9 Qualified Code(s): E66.09 - Other obesity due to excess calories; Z68.32 - Body mass index [BMI] 32.0-32.9, adult Plan: Healthy diet and regular exercise is encouraged. Plan This note was constructed using voice recognition software. While every effort has been made to ensure accuracy and supervisor product inspection, still areas may have been included sometimes these areas may affect the content or meeting of the given symptoms. Total time spent caring for the patient today was 20 minutes. This includes time spent before the visit reviewing the chart, time spent during the visit, and time spent after the visit and documentation. Patient was informed and verbally consented to the use of an ambient scribe for clinic note documentation during this visit. Medications: New metoprolol succinate ER 50 mg PO DAILY 90 tabs 0RF Discontinued metoprolol succinate ER Discontinued Reason: Patient no longer taking 25 mg PO DAILY 90 days 90 tabs 2RF I10 - Essential (primary) hypertension
[2024-11-14 14:39] VITALS: BP 180/100; PULSE 80; TEMP 36.4; O2SAT 98; BMI 29.2
== END 2024-11-14 15:11 | disposition home or self-care (01) ==
LOC: HO.HMCH 14:26
PROVIDERS: PCP Internal Medicine
DX: I10 Essential (primary) hypertension (principal); R73.02 Impaired glucose tolerance (oral); E66.09 Other obesity due to excess calories; Z68.32 Body mass index [BMI] 32.0-32.9, adult

== ENCOUNTER → 2024-11-14 14:25 | Outpatient (BNVA) | payer MEDICARE, MEDICAID, SELFPAY | PROVIDERS: PCP Internal Medicine | DX: I10 Essential (primary) hypertension (principal); R73.02 Impaired glucose tolerance (oral); E66.09 Other obesity due to excess calories; Z68.32 Body mass index [BMI] 32.0-32.9, adult; Z71.3 Dietary counseling and surveillance | CPT/HCPCS: 99212 ==

== ENCOUNTER 2025-01-17 14:13 | Outpatient (AMB) | payer MEDICARE, MEDICAID, SELFPAY ==
[2025-01-17 14:27] VITALS: BP 160/98; PULSE 94; TEMP 36.5; O2SAT 98; BMI 28.8
--- NOTE | 2025-01-17 14:27 | MHC.PC.OV ---
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 Accompanied by: Self / Same As Patient Allergies amlodipine Allergy (Unknown, Verified 01/17/25 14:34) Unknown Medication List - Last Reconciled 01/17/25 by Bella Torres PA-C [detachable shower head As directed NS] lisinopril-hydrochlorothiazide 20-12.5 mg 1 tab PO BID metoprolol succinate ER 50 mg PO DAILY Shower Chair As directed Tobacco use date assessed: 01/17/25 Dental Screening Dental Screen Date: 11/14/24 Did you have a dental visit in the last 12 months?: No Did you have a dental problem in the last 6 months where you did not have access to dental care?: No Was dental information given to patient?: No HPI f/u HTN HPI Details 59 year old male with past medical history of hypertension, impaired glucose tolerance and obesity last seen 07/2024 coming in for follow up. Presenting with hypertension management and medication side effects. The patient has a history of elevated blood pressure, with recent readings as high as 153 mmHg. The patient reports that metoprolol, which was increased recently, causes a sensation of increased intracranial pressure and headaches. The patient has been non-adherent to the prescribed twice-daily dosing of lisinopril due to concerns about side effects. The patient has experienced dizziness and headaches when taking the medication as prescribed, leading to self-adjustment of the dosage. [facility] Medical History Tubular adenoma of colon BPH (benign prostatic hyperplasia) Cyst of left kidney Obesity Hypertension Vitamin D deficiency Bilateral hearing loss Surgical History No pertinent past surgical history Family History Father Medical history unknown Mother Medical history unknown Social History Housing: Apartment Are you a primary health care aide to a significant other at home: No Do you presently have visiting nurse or other home services: No Alcohol intake: never Patient Tobacco Use Status: Never used Tobacco Tobacco use type: Cigarette e-Cigarette/Vaping Use: Never Used Second Hand Smoke Exposure: No service: No Current occupational status: unemployed Cognitive needs: No Hearing needs: Yes Vision needs: Yes Questionnaire PHQ-9 Over the last 2 weeks, how often have you been bothered by any of the following problems? 1. Little interest or pleasure in doing things: not at all 2. Feeling down, depressed, or hopeless: not at all 3. Trouble falling or staying asleep, or sleeping too much: not at all 4. Feeling tired or having little energy: not at all 5. Poor appetite or overeating: not at all 6. Feeling bad about yourself - or that you are a failure or have let yourself or your family down: not at all 7. Trouble concentrating on things, such as reading the newspaper or watching television: not at all 8. Moving or speaking so slowly that other people could have noticed. Or the opposite - being so fidgety or restless that you have been moving around a lot more than usual: not at all 9. Thoughts that you would be better off or of hurting yourself in some way: not at all Total score: 0 Depression Screening Interpretation: Negative Depression Screening Done: Yes Source: Developed by Drs. Larry Coon, eMlissa Andujar, Prabhu Gramajo and colleagues, with an educational kathy from [employer]. Thrive Questionnaire Date Thrive assessed: 07/26/24 I am a: Patient What is your living situation today?: I have a steady place to live Within the past 12 months, did the food you bought not last and you didn't have the money to get more?: Never true Within the past 12 months, did you worry whether your food would run out before you got money to buy more?: Never true Do you have trouble paying for medicines?: No Do you have trouble getting transportation to medical appointments?: No Do you have trouble paying your heating and electricity bill?: No Do you have trouble taking care of your child, family member or friend?: No Do you have trouble with day-to-day activities such as bathing, preparing meals, shopping, managing finances, etc.?: No Are you currently unemployed and looking for a job?: No Are you interested in more education?: No Please select the resources that you would like help with: None Currently or been in a relationship where the following occur: No concerns reported THRIVE Score: 0 AUDIT C Alcohol Use Questionnaire (AUDIT-C) 1. How often do you have a drink containing alcohol?: Never Total Score: 0 MICHAEL-7 AMB Questionnaire MICHAEL-7 Date MICHAEL - 7 assessed: 11/14/24 Feeling nervous, anxious, or on edge: 0 = Not at all Not being able to stop or control worryin = Not at all Worrying too much about different things: 0 = Not at all Trouble relaxin = Not at all Being so restless that it is hard to sit still: 0 = Not at all Becoming easily annoyed or irritable: 0 = Not at all Feeling afraid as if something awful might happen: 0 = Not at all Total MICHAEL-7 score (0-4 normal; 5-9 mild; 10-14 moderate; 15-21 severe): 0 Source: Developed by Drs. Larry Coon, Melissa Andujar, Prabhu Grmaajo and colleagues, with an educational kathy from [employer]. Review of Systems Const Denies body aches, Denies chills, Denies fever(s), Denies headache(s) and Denies poor appetite Eyes Reports no additional complaints ENT Denies dysphagia, Denies dizziness, Denies headache(s) and Denies odynophagia Card Denies chest pain, Denies syncope, Denies edema, Denies irregular heart rhythm, Denies lightheadedness and Denies dyspnea Resp Denies cough and Denies dyspnea GI Denies abdominal pain, Denies constipation, Denies dysphagia, Denies diarrhea, Denies nausea, Denies odynophagia and Denies vomiting Reports no additional complaints Musc Reports no additional complaints and Denies abnormal gait Skin/Breast Reports system reviewed and no additional complaints, except as documented Neuro Denies abnormal gait, Denies dizziness, Denies syncope and Denies headache(s) Psych Reports no additional complaints Physical exam (Primary Care) Vital Signs: Last Vital Signs Temp 97.7 F 01/17/25 14:27 Pulse 94 01/17/25 14:27 BP 160/98 H 01/17/25 14:27 Pulse Ox 98 01/17/25 14:27 Oxygen Delivery Method Room Air 01/17/25 14:27 BMI result Body Mass Index 28.8 Tobacco/Smoking Status: Tobacco use Status Tobacco use date assessed 01/17/25 01/17/25 14:32 Patient Tobacco Use Status Never used Tobacco 01/17/25 14:32 Tobacco use type Cigarette 01/17/25 14:32 e-Cigarette/Vaping Use Never Used 01/17/25 14:32 PHQ-9: PHQ-9 Score PHQ-9: Total score 0 01/17/25 14:38 Depression Screening Interpretation: Negative Thrive Assessment: Date of Thrive Assessment Date Thrive assessed 07/26/24 01/17/25 14:32 Currently or been in a relationship where the following occur: No concerns reported Const General: cooperative, healthy appearing, comfortable and no acute distress Orientation/consciousness: patient oriented x3 HENMT Head: Yes normocephalic Ears: hearing grossly normal bilaterally General nose exam: Normal external nose present Eyes General: appearance normal, both eyes and all related structures Conjunctivae: conjunctivae normal Neck Neck: Yes full ROM and Yes no lymphadenopathy Resp Effort & Inspection: normal respiratory effort Auscultation: clear to auscultation bilaterally, no crackles, no rales, no rhonchi and no wheezes Cardio Rate: regular rate Rhythm: regular rhythm Skin General skin exam: no rashes or lesions noted Neuro General: patient oriented x3 Gait exam (Neuro): Normal gait present Extrem General: Yes normal to inspection, Yes full ROM and No edema Psych Affect: normal affect Attitude: cooperative Insight: Good insight present (Psych) Judgement: Good judgement present (Psych) Coding Level of Care Code Est Pt Level 3 (78020) Diagnoses Essential hypertension I10 Hypertension type: essential hypertension Impaired glucose tolerance R73.02 Class 1 obesity due to excess calories without serious comorbidity with body mass index (BMI) of 32.0 to 32.9 in adult E66.09; Z68.32 Body mass index: BMI 32.0-32.9 Obesity classification: adult class 1 (BMI 30 - 34.9) Obesity type: due to excess calories Serious obesity comorbidity presence: without serious comorbidity Assessment & Plan Assessment & Plan (1) Hypertension: Code(s): I10 - Essential (primary) hypertension Category: Medical Qualifiers: Hypertension type: essential hypertension Qualified Code(s): I10 - Essential (primary) hypertension Plan: Patient has continuously elevated blood pressure most recent value 180/90 when retaken in the office. He did not take his lisinopril-hydrochlorothiazide this morning and is not compliant with his twice daily dosing. I did offer to switch to once daily dosing which patient declined as this causes headaches for him. He is also requesting to have his metoprolol decreased as he has discontinued it due to increased headaches at the higher dose. I did decrease the metoprolol and reminded him elevated blood pressure can lead to cardiac complications such as heart attack and stroke especially had an uncontrolled level. I also urged patient to seek Nephrology consultation which he adamantly declined. Patient will continue to follow up with his PCP and is declining further adjustments of medication at this time He is currently asymptomatic but I did review with patient red flag symptoms and when to present for re-evaluation. (2) Impaired glucose tolerance: Code(s): R73.02 - Impaired glucose tolerance (oral) Category: Medical Plan: Decrease the amount of carbohydrates such as pasta, bread, rice, and potatoes and limit the amount of sweets. Although fruits are generally healthy they should be eaten in moderation as they are still high in sugar. (3) Obesity: Code(s): E66.9 - Obesity, unspecified Category: Medical Qualifiers: Body mass index: BMI 32.0-32.9 Obesity classification: adult class 1 (BMI 30 - 34.9) Obesity type: due to excess calories Serious obesity comorbidity presence: without serious comorbidity Qualified Code(s): E66.09 - Other obesity due to excess calories; Z68.32 - Body mass index [BMI] 32.0-32.9, adult Plan: Healthy diet and regular exercise is encouraged. Plan This note was constructed using voice recognition software. While every effort has been made to ensure accuracy and runner out, still areas may have been included sometimes these areas may affect the content or meeting of the given symptoms. Total time spent caring for the patient today was 20 minutes. This includes time spent before the visit reviewing the chart, time spent during the visit, and time spent after the visit and documentation. Patient was informed and verbally consented to the use of an ambient scribe for clinic note documentation during this visit. Orders: Referrals Speech and Hearing Referral Z97.4 - Presence of external hearing-aid Medications: New metoprolol succinate ER 25 mg PO DAILY 90 tabs 0RF Discontinued metoprolol succinate ER Discontinued Reason: Patient no longer taking 50 mg PO DAILY 90 tabs 0RF
== END 2025-01-17 14:52 | disposition home or self-care (01) ==
LOC: HO.HMCH 14:14
PROVIDERS: PCP Internal Medicine
DX: I10 Essential (primary) hypertension (principal); R73.02 Impaired glucose tolerance (oral); E66.09 Other obesity due to excess calories; Z68.32 Body mass index [BMI] 32.0-32.9, adult

== ENCOUNTER → 2025-01-17 14:13 | Outpatient (BNVA) | payer MEDICARE, MEDICAID, SELFPAY | PROVIDERS: PCP Internal Medicine | DX: I10 Essential (primary) hypertension (principal); R73.02 Impaired glucose tolerance (oral); E66.09 Other obesity due to excess calories; Z68.32 Body mass index [BMI] 32.0-32.9, adult; Z71.3 Dietary counseling and surveillance | CPT/HCPCS: 99212 ==

== ENCOUNTER 2025-02-27 13:35 | Outpatient (AMB) | payer MEDICARE, MEDICAID, SELFPAY ==
--- NOTE | 2025-02-27 13:38 | A.OFFPC_ITS ---
Vital Signs 02/27/25 13:39 02/27/25 14:03 Height 5 ft 7 in Weight 178 lb 4 oz BMI 27.9 BP 140/92 H 130/80 Blood Pressure Location Lt brachial Lt brachial Position Sitting Sitting Pulse 70 Pulse Source Pulse Oximeter Temp 97.3 F Temp Source Temporal Artery Scan Pulse Oximetry (%) 100 Oxygen Delivery Method Room Air Intake Visit Reasons: f/u HTN Allergies amlodipine Allergy (Unknown, Verified 02/27/25 13:42) Unknown Tobacco use date assessed: 02/27/25 Dental Screening Dental Screen Date: 02/27/25 Did you have a dental visit in the last 12 months?: Yes Did you have a dental problem in the last 6 months where you did not have access to dental care?: No Was dental information given to patient?: Patient has dentist [facility] Medical History Tubular adenoma of colon BPH (benign prostatic hyperplasia) Cyst of left kidney Obesity Hypertension Vitamin D deficiency Bilateral hearing loss Surgical History No pertinent past surgical history Family History Father Medical history unknown Mother Medical history unknown Social History Housing: Apartment Are you a primary child care coordinator to a significant other at home: No Do you presently have visiting nurse or other home services: No Alcohol intake: never Patient Tobacco Use Status: Never used Tobacco Tobacco use type: Cigarette e-Cigarette/Vaping Use: Never Used Second Hand Smoke Exposure: No service: No Current occupational status: unemployed Cognitive needs: No Hearing needs: Yes Vision needs: Yes Questionnaire PHQ-9 Over the last 2 weeks, how often have you been bothered by any of the following problems? 1. Little interest or pleasure in doing things: not at all 2. Feeling down, depressed, or hopeless: not at all 3. Trouble falling or staying asleep, or sleeping too much: not at all 4. Feeling tired or having little energy: not at all 5. Poor appetite or overeating: not at all 6. Feeling bad about yourself - or that you are a failure or have let yourself or your family down: not at all 7. Trouble concentrating on things, such as reading the newspaper or watching television: not at all 8. Moving or speaking so slowly that other people could have noticed. Or the opposite - being so fidgety or restless that you have been moving around a lot more than usual: not at all 9. Thoughts that you would be better off or of hurting yourself in some way: not at all Total score: 0 Depression Screening Interpretation: Negative Depression Screening Done: Yes Source: Developed by Drs. Larry Coon, Melissa Andujar, Prabhu Gramajo and colleagues, with an educational kathy from [employer]. Thrive Questionnaire Date Thrive assessed: 07/26/24 I am a: Patient What is your living situation today?: I have a steady place to live Within the past 12 months, did the food you bought not last and you didn't have the money to get more?: Never true Within the past 12 months, did you worry whether your food would run out before you got money to buy more?: Never true Do you have trouble paying for medicines?: No Do you have trouble getting transportation to medical appointments?: No Do you have trouble paying your heating and electricity bill?: No Do you have trouble taking care of your child, family member or friend?: No Do you have trouble with day-to-day activities such as bathing, preparing meals, shopping, managing finances, etc.?: No Are you currently unemployed and looking for a job?: No Are you interested in more education?: No Please select the resources that you would like help with: None Currently or been in a relationship where the following occur: No concerns reported THRIVE Score: 0 AUDIT C Alcohol Use Questionnaire (AUDIT-C) 1. How often do you have a drink containing alcohol?: Never 3. How often do you have six or more drinks on one occasion?: Never Total Score: 0 MICHAEL-7 AMB Questionnaire MICHAEL-7 Date MICHAEL - 7 assessed: 11/14/24 Feeling nervous, anxious, or on edge: 0 = Not at all Not being able to stop or control worryin = Not at all Worrying too much about different things: 0 = Not at all Trouble relaxin = Not at all Being so restless that it is hard to sit still: 0 = Not at all Becoming easily annoyed or irritable: 0 = Not at all Feeling afraid as if something awful might happen: 0 = Not at all Total MICHAEL-7 score (0-4 normal; 5-9 mild; 10-14 moderate; 15-21 severe): 0 Source: Developed by Drs. Larry Coon, Melissa Andujar, Prabhu Gramajo and colleagues, with an educational kathy from [employer]. Physical exam (Primary Care) Vital Signs: Last Vital Signs Temp 97.3 F 02/27/25 13:39 Pulse 70 02/27/25 13:39 BP 130/80 02/27/25 14:03 Pulse Ox 100 02/27/25 13:39 Oxygen Delivery Method Room Air 02/27/25 13:39 BMI result Body Mass Index 27.9 Tobacco/Smoking Status: Tobacco use Status Tobacco use date assessed 02/27/25 02/27/25 13:42 Patient Tobacco Use Status Never used Tobacco 02/27/25 13:42 Tobacco use type Cigarette 02/27/25 13:42 e-Cigarette/Vaping Use Never Used 02/27/25 13:42 PHQ-9: PHQ-9 Score PHQ-9: Total score 0 02/27/25 14:03 Depression Screening Interpretation: Negative Thrive Assessment: Date of Thrive Assessment Date Thrive assessed 07/26/24 02/27/25 13:42 Currently or been in a relationship where the following occur: No concerns reported Const General: alert; No acute distress Eyes Conjunctivae: conjunctivae normal Resp Auscultation: clear to auscultation bilaterally Cardio Rate: regular rate Rhythm: regular rhythm GI Inspection: Yes normal to inspection Extrem General: Yes normal to inspection and No edema Coding Level of Care Code Est Pt Level 4 (17505) Complex EM visit Add On G2211 Diagnoses Essential hypertension I10 Hypertension type: essential hypertension Impaired glucose tolerance R73.02 Class 1 obesity due to excess calories without serious comorbidity with body mass index (BMI) of 32.0 to 32.9 in adult E66.09; Z68.32 Body mass index: BMI 32.0-32.9 Obesity classification: adult class 1 (BMI 30 - 34.9) Obesity type: due to excess calories Serious obesity comorbidity presence: without serious comorbidity Benign prostatic hyperplasia without lower urinary tract symptoms N40.0 Lower urinary tract symptom presence: symptoms absent Assessment & Plan Assessment & Plan (1) Hypertension: Code(s): I10 - Essential (primary) hypertension Category: Medical Qualifiers: Hypertension type: essential hypertension Qualified Code(s): I10 - Essential (primary) hypertension Plan: Continue with blood pressure medication. Decrease salt intake and exercise presently on lisinopril hydrochlorothiazide 20/12.5 mg twice a day metoprolol 25 mg once a day (2) Impaired glucose tolerance: Code(s): R73.02 - Impaired glucose tolerance (oral) Category: Medical Plan: Decrease the amount of carbohydrate intake, pasta, bread, rice and potatoes are all sugar and that is aside from all the sweet stuff, remember that fruits are good but they are Sweet also. June last blood work (3) Obesity: Code(s): E66.9 - Obesity, unspecified Category: Medical Qualifiers: Body mass index: BMI 32.0-32.9 Obesity classification: adult class 1 (BMI 30 - 34.9) Obesity type: due to excess calories Serious obesity comorbidity presence: without serious comorbidity Qualified Code(s): E66.09 - Other obesity due to excess calories; Z68.32 - Body mass index [BMI] 32.0-32.9, adult Plan: Diet and exercise (4) BPH (benign prostatic hyperplasia): Code(s): N40.0 - Benign prostatic hyperplasia without lower urinary tract symptoms Category: Medical Qualifiers: Lower urinary tract symptom presence: symptoms absent Qualified Code(s): N40.0 - Benign prostatic hyperplasia without lower urinary tract symptoms Plan: Stable Plan History of Present Illness The patient is a 59-year-old male presenting for follow-up on hypertension management and preventative care. The patient has a history of hypertension, currently managed with lisinopril and hydrochlorothiazide 20/12.5 mg twice daily, and metoprolol 25 mg once daily. Blood pressure was recorded at 130/80 mmHg, indicating good control with the current regimen. The patient has benign prostatic hyperplasia, which has been previously diagnosed. A tubular adenoma of the colon was identified during a colonoscopy in September 2024, with a follow-up colonoscopy planned for 2029. The patient experienced mild anemia, as noted in the last blood work conducted in June, with normal renal and liver function. The patient has been overweight but has recently achieved an 8-pound weight loss through dietary changes and increased physical activity. Preventative care measures include a completed shingles vaccination series and plans for future colonoscopy screenings. Health Maintenance - Shingles vaccination completed - Colonoscopy scheduled for 2029 - Blood pressure management with lisinopril and hydrochlorothiazide, and metoprolol Social History - Employment: Patient is currently employed and reports being busy at work. - Exercise: Engages in physical activity, contributing to recent weight loss. - Nutrition: Reports dietary changes leading to weight loss. Review of Systems - Cardiovascular: Denies chest pain, reports stable blood pressure. - Genitourinary: Denies urinary symptoms related to BPH. - General: Reports feeling well, denies significant fatigue. Physical Exam - Cardiovascular: Blood pressure 130/80 mmHg, indicating good control. Results - Labs: Mild anemia noted in June blood work. - Labs: Normal renal and liver function tests. - Labs: Hemoglobin A1c at 5.7%. - Labs: LDL cholesterol at 81 mg/dL. Plan Patient was informed and verbally consented to the use of an ambient scribe for clinic note documentation during this visit. 1. Essential Hypertension The patient is currently on a regimen of lisinopril and hydrochlorothiazide 20/12.5 mg twice daily, and metoprolol 25 mg once daily, which has effectively controlled his blood pressure at 130/80 mmHg. Continued monitoring and adherence to medication are advised, with follow-up scheduled in three months. 2. Benign Prostatic Hyperplasia The patient has a history of benign prostatic hyperplasia, with no current urinary symptoms reported. Regular monitoring is recommended, with no immediate intervention required. 3. Tubular Adenoma Of The Colon A tubular adenoma was identified during a colonoscopy in September 2024, with a follow-up colonoscopy planned for 2029 to monitor for any changes. No immediate concerns were noted, and routine surveillance is advised. 4. Mild Anemia The patient exhibited mild anemia in the last blood work conducted in June. Further evaluation of iron levels is planned during the next blood work to determine any underlying causes. Discussion Notes During the visit, we discussed the patient's current management of hypertension, which is well-controlled with the current medication regimen. We also reviewed the importance of regular monitoring for benign prostatic hyperplasia and the need for routine colonoscopy screenings due to the previous finding of a tubular adenoma. The patient was informed about the mild anemia noted in the last blood work, and plans were made to evaluate iron levels in the upcoming tests. Preventative care measures, including the completion of the shingles vaccination series, were also discussed. Patient Instructions - Continue taking blood pressure medications as prescribed. - Schedule and complete blood work before the next visit in June. - Maintain current diet and exercise regimen to support weight management. - Monitor for any new symptoms related to benign prostatic hyperplasia and report if they occur. - Follow up in three months for routine check-up. Orders: Orders Complete Blood Count Auto Diff 3 Months R73.02 - Impaired glucose tolerance (oral) Free T4 (Free Thyroxine) 3 Months R73.02 - Impaired glucose tolerance (oral) Thyroid Stimulating Hormone 3 Months R73.02 - Impaired glucose tolerance (oral) Prostate Specific Antigen Scr 3 Months R73.02 - Impaired glucose tolerance (oral) Reticulocyte Count 3 Months R73.02 - Impaired glucose tolerance (oral) Comprehensive Met. Panel 3 Months R73.02 - Impaired glucose tolerance (oral) Ferritin 3 Months R73.02 - Impaired glucose tolerance (oral) Lipid Panel 3 Months E78.00 - Pure hypercholesterolemia, unspecified, R73.02 - Impaired glucose tolerance (oral) IRON PROFILE 3 Months R73.02 - Impaired glucose tolerance (oral) UA CC w/rflx Micro + Cult 3 Months R30.0 - Dysuria, R73.02 - Impaired glucose tolerance (oral) Vitamin B12 and Folate 3 Months R73.02 - Impaired glucose tolerance (oral) Hemoglobin A1c 3 Months R73.02 - Impaired glucose tolerance (oral)
[2025-02-27 13:39] VITALS: BP 140/92; PULSE 70; TEMP 36.3; O2SAT 100; BMI 27.9
[2025-02-27 14:03] VITALS: BP 130/80
== END 2025-02-27 14:08 | disposition home or self-care (01) ==
LOC: HO.HMCH 13:36
PROVIDERS: PCP Internal Medicine; Visit Provider Internal Medicine
DX: I10 Essential (primary) hypertension (principal); R73.02 Impaired glucose tolerance (oral); E66.09 Other obesity due to excess calories; Z68.32 Body mass index [BMI] 32.0-32.9, adult; N40.0 Benign prostatic hyperplasia without lower urinary tract symptoms

== ENCOUNTER → 2025-02-27 13:35 | Outpatient (BNVA) | payer MEDICARE, MEDICAID, SELFPAY | PROVIDERS: PCP Internal Medicine; Visit Provider Internal Medicine | DX: I10 Essential (primary) hypertension (principal); R73.02 Impaired glucose tolerance (oral); E66.09 Other obesity due to excess calories; N40.0 Benign prostatic hyperplasia without lower urinary tract symptoms; D64.9 Anemia, unspecified; Z68.32 Body mass index [BMI] 32.0-32.9, adult | CPT/HCPCS: 96127; 99212 ==